=== PATIENT | female | born 1980 | race Caucasian/White ===

== ENCOUNTER → 2018-11-04 10:14 | Outpatient (CLI) | payer MEDICAID, SELFPAY ==
--- NOTE | 2018-11-04 10:18 | XR_ITS ---
XR hand LT min 3V HISTORY: Follow-up fracture ITS.REASON: evaluate for LT 4th fracture ORDERING PHYSICIAN: Terry Sevilla MD PATIENT AGE: 38 years COMPARISON: None FINDINGS: Comminuted fracture involves the mid shaft of the fourth metacarpal. There is mild displacement of the distal fracture fragment laterally x 3 mm.. The joint spaces are well-preserved. No significant degenerative/arthritic changes. No erosive changes evident.. IMPRESSION: Comminuted mildly displaced mid shaft fourth metacarpal fracture
[2018-11-04 12:34] LABS: Basophils % 0.7 % (0.1-2.0); Eosinophils # 0.1 K/mm3 (0.0-0.4); Eosinophils % 1.2 % (0.1-12.0); Hematocrit 35.7 % (37.0-47.0); Hemoglobin 10.5 g/dL (12.2-16.2); Lymphocytes # 1.8 K/mm3 (0.7-4.5); Lymphocytes % 38.8 % (10-50); Mean Corpuscular HGB Conc 29.5 g/dL (31.8-35.4); Mean Corpuscular Hemoglobin 21.9 pg (27.0-31.2); Mean Corpuscular Volume 74.5 fl (81-99); Mean Platelet Volume 8.3 fl (7.4-10.4); Monocytes # 0.3 K/mm3 (0.1-1.0); Neutrophils # 2.5 K/mm3 (1.8-7.8); Neutrophils % 53.2 % (37.0-80.0); Platelet Count 306 K/mm3 (142-424); Red Cell Distribution Width 18.6 % (11.5-17.5); White Blood Count 4.8 K/mm3 (4.8-10.8)
[2018-11-04 13:57] LABS: Alanine Aminotransferase 960 U/L (12-78); Albumin Level 3.2 gm/dL (3.4-5.0); Albumin/Globulin Ratio 0.8 (1.1-1.8); Alkaline Phosphatase 288 U/L (46-116); Anion Gap 14.2 mEq/L (5-15); Bilirubin,Total 0.9 mg/dL (0.2-1.0); Blood Urea Nitrogen 11 mg/dL (7-18); Calcium 8.9 mg/dL (8.5-10.1); Carbon Dioxide 24 mmol/L (21.0-32.0); Chloride 105 mmol/L (98-107); Creatinine,Serum 0.72 mg/dL (0.55-1.02); Estimated Glomerular Filt Rate 92 ml/min (>60); GFR (African American) 111 ML/MIN (>60); Globulin 4.2 gm/dl (1.3-3.2); Glucose 86 mg/dL (74-106); Sodium 139 mmol/L (136-145); Total Protein,Serum 7.4 gm/dL (6.4-8.2)
[2018-11-04 14:00] LABS: Aspartate Amino Transferase 738 U/L (15-37); Potassium 4.2 mmoL/L (3.5-5.1)
[2018-11-04 17:47] LABS: HCG Qualitative, Serum Negative (Negative)
[2018-11-07 18:09] LABS: Hep A Ab, IgM Positive (Negative); Hepatitis B Core Antibody IgM Negative (Negative); Hepatitis B Surface Antigen Negative (Negative)
[2018-11-08 02:51] LABS: Hepatitis C Antibody >11.0 s/co ratio (0.0-0.9)
== END ==
PROVIDERS: Nurse Practitioner Family; PCP Emergency Medicine; Visit Provider Orthopaedic Surgery
DX: Z01.818 Encounter for other preprocedural examination (principal); M79.642 Pain in left hand
CPT/HCPCS: 36415; 73130; 80053; 80074; 84703; 85025

== ENCOUNTER → 2018-11-06 13:12 | Outpatient (CLI) | payer MEDICAID, SELFPAY ==
[2018-11-06 15:56] LABS: Amylase 33 U/L (25-115); Lipase 80 u/L (73-393)
== END ==
PROVIDERS: PCP Emergency Medicine; Visit Provider Nurse Practitioner Family
DX: R89.9 Unspecified abnormal finding in specimens from other organs, systems and tissues (principal)
CPT/HCPCS: 36415; 82150; 83690

== ENCOUNTER → 2018-11-08 14:00 | Outpatient (CLI) | payer MEDICAID, SELFPAY ==
[2018-11-08 15:15] LABS: Albumin Level 3.3 gm/dL (3.4-5.0); Albumin/Globulin Ratio 0.8 (1.1-1.8); Alkaline Phosphatase 552 U/L (46-116); Anion Gap 16.1 mEq/L (5-15); Bilirubin,Total 6.1 mg/dL (0.2-1.0); Blood Urea Nitrogen 11 mg/dL (7-18); Calcium 9.1 mg/dL (8.5-10.1); Carbon Dioxide 25 mmol/L (21.0-32.0); Chloride 101 mmol/L (98-107); Creatinine,Serum 0.73 mg/dL (0.55-1.02); Estimated Glomerular Filt Rate 90 ml/min (>60); Ferritin 230 ng/mL (8-388); GFR (African American) 109 ML/MIN (>60); Globulin 4.4 gm/dl (1.3-3.2); Glucose 91 mg/dL (74-106); Potassium 4.1 mmoL/L (3.5-5.1); Sodium 138 mmol/L (136-145); T4 (Thyroxine) 12.6 ug/dl (4.7-13.3); Thyroid Stimulating Hormone 15.65 uIU/ml (0.358-3.740); Total Protein,Serum 7.7 gm/dL (6.4-8.2)
[2018-11-08 15:50] LABS: Alanine Aminotransferase 2585 U/L (12-78); Aspartate Amino Transferase 2229 U/L (15-37)
[2018-11-10 05:11] LABS: Iron 114 ug/dL (27-159); UIBC 347 ug/dL (131-425)
[2018-11-10 08:37] LABS: Iron Saturation 25 % (15-55); Vitamin B12 1740 pg/mL (232-1245); Vitamin D 25 Hydroxy 17.3 ng/mL (30.0-100.0)
== END ==
PROVIDERS: Visit Provider Nurse Practitioner Family
DX: B19.20 Unspecified viral hepatitis C without hepatic coma (principal); R11.2 Nausea with vomiting, unspecified
CPT/HCPCS: 80053; 82607; 82652; 82728; 83540; 83550; 84436; 84443

== ENCOUNTER → 2021-11-04 17:01 | Outpatient (CLI) | payer MEDICAID, SELFPAY | PROVIDERS: Visit Provider Nurse Practitioner | DX: U07.1 COVID-19 (principal) | CPT/HCPCS: C9803; U0003; U0005 ==

== ENCOUNTER 2022-02-03 16:10 | Emergency (ER) | payer MEDICAID, SELFPAY ==
[2022-02-03 17:44] VITALS: BP 129/84; PULSE 68; RESP 18; TEMP 36.7; O2SAT 100; BMI 24.5
--- NOTE | 2022-02-03 17:52 | HMH.EDUTC ---
[facility] [place] Disposition Clinical Impression: Infected puncture wound Disposition: Home, Self-Care Condition on Discharge: Good Instructions: DI for Puncture Wound, Amoxicillin and Clavulanic Acid Additional Instructions: Clean wound well with antibacterial soap and water and pat dry may apply neosporin Watch area for worsening of redness or swelling Take medication as prescribed Follow up with your Family Doctor if symptoms worsen or do not approve Return if needed Straight to ER if any life threatening symptoms Prescriptions: Amoxicillin/Potassium Clav [Amox-Clav 875-125 mg Tablet] 1 tab PO BID #20 tab Transmission Status: Pending to [facility] Referrals: Larry Quezada [Primary Care Provider] - As needed Time of Disposition: 18:03 Medical Decision Making - Kamron Inquiry Pt receiving controlled substance: No Kamron was queried for this patient: No Vital Signs: 02/03/22 17:44 Temperature 98.1 F Temperature Source Oral Pulse Rate [Left Radial] 68 Respiratory Rate 18 Blood Pressure [Left Arm] 129/84 Blood Pressure Mean [Left Arm] 99 Blood Pressure Source [Left Arm] Automatic Cuff Blood Pressure Position [Left Arm] Sitting 02 Sat by Pulse Oximetry 100 Oxygen Delivery Method Room Air Orders (Tests/Meds): ED MEDICATIONS Discontinued Medications Generic Name Dose Route Start Last Admin Trade Name Freq PRN Reason Stop Dose Admin Tetanus/Reduced Diphtheria/Acell Pertussis 0.5 ml 02/03/22 17:50 Tet/Diphth/Pert-Adult 0.5ml Syringe IM 02/03/22 17:51 .ONCE ONE [facility] [place] HPI - General Stated complaint: ao 02/02 nail wound L arn Time Seen by Provider: 02/03/22 17:53 Mode of Arrival: Ambulatory Source of Information: Patient Limitations: No Limitations Description of Symptoms (Recalled from Triage Doc. by RN): C/O puncture to rt arm HEENT Symptoms (Recalled from RN notes): No Resp Symptoms (Recalled from RN notes): No Skin Symptoms (Recalled from RN notes): Yes (Puncture to rt arm) MS Symptoms (Recalled from RN notes): No Functional Status (Recalled from RN notes): n/a - History of Present Illness Provider Complaint: Patient states that she was cleaning up and property and was pushing and old dog house when a nail that was sticking out stuck into her right forearm State that she immediately cleaned the area with peroxide but noticed over the last couple of days she noticed it was looking more red and she cannot remember when her last tetanus shot was so she came in to get checked - Related Data Home Medications Medication Instructions Recorded Confirmed cephalexin 500 mg capsule 500 mg PO QID 11/04/18 11/08/18 hydrocodone 5 mg-acetaminophen 325 1 tab PO Q6H 11/04/18 11/08/18 mg tablet sulfamethoxazole 800 1 tab PO BID tab 11/04/18 11/08/18 mg-trimethoprim 160 mg tablet Previous Rx's Medication Instructions Recorded ondansetron HCl 4 mg tablet 4 mg PO Q6H PRN #16 tab 11/08/18 cholecalciferol (vitamin D3) 125 5,000 unit PO DAILY #30 cap 11/11/18 mcg (5,000 unit) capsule ergocalciferol (vitamin D2) 1,250 50,000 unit PO QWEEK #4 cap 11/11/18 mcg (50,000 unit) capsule Amoxicillin/Potassium Clav 1 tab PO BID #20 tab 02/03/22 [Amox-Clav 875-125 mg Tablet] Allergies Allergy/AdvReac Type Severity Reaction Status Date / Time NO KNOWN ALLERGIES Allergy Uncoded 11/08/18 09:34 - Worker's Comp Is this a Worker's Comp case?: No [facility] History - Hepatitis A Screen Drug use history?: No High risk sexual behaviors?: No History of sexually transmitted infection?: No Currently employed?: No Childcare worker?: No Do you have indoor plumbing?: Yes Do you have electricity?: Yes Attestation statement:: This patient has been screened for Hepatitis A risk factors. I have reviewed the patient's past medical history: Yes Other Surgeries: Yes: Other Amputation: No Fractures: Yes Comment: Explore - Social History Smoking Status: Current every day smoker
[2022-02-03 18:15] VITALS: BP 129/84; PULSE 68; RESP 18; TEMP 36.7; O2SAT 100
== END 2022-02-03 18:16 | disposition home or self-care (01) ==
PROVIDERS: Emergency Provider Nurse Practitioner; PCP Family Medicine
DX: S51.831A Puncture wound without foreign body of right forearm, initial encounter (principal); W45.0XXA Nail entering through skin, initial encounter; Y92.017 Garden or yard in single-family (private) house as the place of occurrence of the external cause; Z23 Encounter for immunization; F17.210 Nicotine dependence, cigarettes, uncomplicated
CPT/HCPCS: 90471; 90715; 99212; G0463

== ENCOUNTER 2022-08-05 10:29 | Emergency (ER) | payer MEDICAID, SELFPAY ==
[2022-08-05 11:38] VITALS: BP 0/0; PULSE 0; RESP 0; TEMP -17.7; TEMP 0
== END 2022-08-05 11:39 | disposition left against medical advice (07) ==
PROVIDERS: Emergency Provider Nurse Practitioner; PCP Family Medicine
DX: Z53.21 Procedure and treatment not carried out due to patient leaving prior to being seen by health care provider (principal)

== ENCOUNTER 2022-08-05 19:10 | Emergency (ER) | payer MEDICAID, SELFPAY ==
--- NOTE | 2022-08-05 19:17 | XR_ITS ---
PROCEDURE INFORMATION: Exam: XR Right Ribs with PA Chest Exam date and time: 08/05/2022 7:14 PM Age: 42 years old Clinical indication: Chest wall pain; Right; Additional info: Pain in ribs from coughing TECHNIQUE: Imaging protocol: Radiologic exam of the Right ribs with PA chest. Views: 3 views COMPARISON: No relevant prior studies available. FINDINGS: Lungs: Opacity in the right middle lobe may represent pneumonia.. Pleural spaces: Unremarkable. No pleural effusion. No pneumothorax. Heart/Mediastinum: Unremarkable. No cardiomegaly. Bones/joints: Unremarkable. IMPRESSION: Opacity in the right middle lobe may represent pneumonia..
[2022-08-05 20:19] VITALS: BP 121/70; PULSE 100; RESP 20; TEMP 38.1; O2SAT 96; BMI 24.9
--- NOTE | 2022-08-05 20:24 | EXP.UTC ---
Discharge Plan Disposition Patient Disposition: Home, Self-Care Condition: Good Prescriptions Prescriptions: New azithromycin [Zithromax Z-Yaya] 250 mg tablet See Rx Instructions .ROUTE .COMPLEX 5 Days Qty: 6 0RF Rx Instructions: For 250 mg dose pack: take 500 mg today (day 1), then 250 mg for 4 days (days 2-5) prednisone [prednisone] 20 mg tablet 20 mg PO BID 5 Days Qty: 10 0RF cefdinir 300 mg capsule 300 mg PO BID Qty: 20 0RF guaifenesin [Mucinex] 600 mg tablet extended release 12hr 600 mg PO BID PRN (Reason: cough) Qty: 20 0RF albuterol sulfate [Proventil HFA] 90 mcg/actuation HFA aerosol inhaler 1 inh inhalation Q6H PRN (Reason: shortness of breath or wheezing) Qty: 8.5 0RF No Action ondansetron HCl [Zofran] 4 mg tablet 4 mg PO Q6H PRN (Reason: nausea) Qty: 16 0RF cephalexin [Keflex] 500 mg capsule 500 mg PO QID hydrocodone-acetaminophen [[place]] 5-325 mg tablet 1 tab PO Q6H sulfamethoxazole-trimethoprim [Bactrim DS] 800-160 mg tablet 1 tab PO BID ergocalciferol (vitamin D2) 50,000 unit capsule 50,000 unit PO QWEEK Qty: 4 1RF cholecalciferol (vitamin D3) 5,000 unit capsule 5,000 unit PO DAILY Qty: 30 5RF amoxicillin-pot clavulanate 1 EACH tablet 1 tab PO BID Qty: 20 0RF buprenorphine-naloxone 8-2 mg tablet, sublingual 2 tab SUBLINGUAL DAILY Label Comments: DISSOLVE 2 TABLETS UNDER THE TONGUE ONCE DAILY Referrals Follow up/Referrals: Larry Quezada [Primary Care Provider] - See instructions Activity Restrictions/Add. Instructions Additional Instructions/Restrictions: Start antibiotic today. Be sure to complete entire prescription even if feeling better Monitor temp. Tylenol every 4 hours as needed and / or ibuprofen every 6 hours as needed ( As long as your primary care physician has told you that it ok to take both. For fever/aches/pains ER if no less than 101 despite Tylenol or Motrin Humidifier/vaporizer or hot steamy shower Inhaler every 4-6 hours as needed like we discussed. If unsure how to use it, ask pharmacist to demonstrate how. Should help open airways and improve cough, wheezing, and shortness of breath *Tessalon Perles will not cause drowsiness but use at bedtime to help stop cough so that you may get some rest. *Start steroid tomorrow. Helps with inflammation therefore, cough and wheezing. Follow directions on the package. Reviewed side effects. Patient reports taking them before. Follow up IMMEDIATELY for new or worsening of symptoms OR no noticeable improvement over the next 48-72 hours. 911 immediately for any life threatening symptoms such as chest pain or difficulty breathing Clinical Impressions Clinical Impression: Pneumonia Qualifiers: Pneumonia type: due to unspecified organism Laterality: right Lung location: middle lobe of lung Qualified Code(s): J18.9 - Pneumonia, unspecified organism Stand Alone Forms Stand Alone Forms: Work/School Release Discharge ED Provider: Laurie Suresh [facility] [place] HPI General Stated complaint: cold cough, right rib cage apin Mode of Arrival: Ambulatory Source of Information: Patient Limitations: No Limitations Time Seen by Provider: 08/05/22 20:24 Description of Symptoms (Recalled from Triage Doc. by RN): pt comes in with c/o rib pain on right side, pain with breathing. pain extending into back, cough, congestion, headache. HEENT Symptoms (Recalled from RN notes): No Resp Symptoms (Recalled from RN notes): Yes Skin Symptoms (Recalled from RN notes): No MS Symptoms (Recalled from RN notes): Yes Functional Status (Recalled from RN notes): n/a History of Present Illness Provider Complaint: Patient states that she recently cared for child that had Rhino Virus States that it was about 2 weeks ago and she got sick last Thursday and has been treating it OTC States that she has been having cough and now having pain in her right ribs that with deep breath s
[2022-08-05 20:25] LABS: Adenovirus,PCR Not Detected (NotDetected); Bordetella Pertussis Not Detected (NotDetected); Chlamydophila Pneumoniae, PCR Not Detected (NotDetected); Coronavirus 19, PCR Not Detected (NotDetected); Coronavirus 229E Not Detected (NotDetected); Coronavirus NL63 Not Detected (NotDetected); Coronavirus OC43 Not Detected (NotDetected); Coronovirus HKU1,PCR Not Detected (NotDetected); Human Metapneumovirus Not Detected (NotDetected); Influenza A, PCR Not Detected (NotDetected); Influenza AH1, 2009 Not Detected (NotDetected); Influenza AH1, PCR Not Detected (NotDetected); Influenza AH3,PCR Not Detected (NotDetected); Influenza B, PCR Not Detected (NotDetected); Mycoplasma Pneumoniae, PCR Not Detected (NotDetected); Parainfluenza 1, PCR Not Detected (NotDetected); Parainfluenza 2, PCR Not Detected (NotDetected); Parainfluenza 3, PCR Not Detected (NotDetected); Parainfluenza 4, PCR Not Detected (NotDetected); Respiratory Syncytial Virus Not Detected (NotDetected)
[2022-08-05 20:39] LABS: Apearance,Urine Cloudy (Clear); Color,Urine Amber (Yellow)
[2022-08-05 20:40] LABS: UTC Pregnancy Test, Urine Negative (Negative)
[2022-08-05 20:40] LABS: Bilirubin,Urine 1+ (Negative); Blood, Urine Negative (Negative); Glucose,Urine (UA) Negative (Negative); Ketones,Urine Negative (Negative); Protein,Urine Trace (Negative); Specific Gravity, Urine 1.025 (1.005-1.030); UTC Leukocyte Esterase,Urine Trace (Negative); UTC Nitrate,Urine Negative (Negative); Urobilinogen,Urine 1 EU/dl (0.2)
[2022-08-05 21:05] VITALS: BP 121/70; PULSE 100; RESP 20; TEMP 37.2
[2022-08-06 00:01] LABS: Rhinovirus/Enterovirus Detected (NotDetected)
== END 2022-08-05 21:10 | disposition home or self-care (01) ==
PROVIDERS: Emergency Provider Nurse Practitioner; PCP Family Medicine
DX: J18.9 Pneumonia, unspecified organism (principal)
CPT/HCPCS: 71101; 81003; 81025; 87086; 87581; 87632; 87798; 96372; 99213; C9803; G0463; J0696; U0003; U0005

== ENCOUNTER 2022-10-28 12:21 | Emergency (ER) | payer MEDICAID, SELFPAY ==
[2022-10-28 12:30] VITALS: BP 136/90; PULSE 110; RESP 16; TEMP 36.6; O2SAT 98; BMI 56.7
--- NOTE | 2022-10-28 12:42 | EXP.UTC ---
Discharge Plan Disposition Patient Disposition: Home, Self-Care Condition: Good Prescriptions Prescriptions: New cefdinir 300 mg capsule 300 mg PO BID Qty: 20 0RF Referrals Follow up/Referrals: Larry Quezada [Primary Care Provider] - See instructions Activity Restrictions/Add. Instructions Additional Instructions/Restrictions: Take medication as prescribed *Monitor Temp, Over the counter Motrin or Tylenol as directed/as needed Tylenol every 4 hours and Motrin every 6 hours (as long as your family doctor has told you that you can take it) for fever or pain. and straight to ER if unable to lower temp less than 101.0 after medication given *Warm salt water gargles may help to soothe the throat *Throat Lozenges? *Warm fluids like tea with honey may help to soothe the throat? *Sleep elevated *Humidifier/Vaporizer Your throat swab was sent for culture. Those results are typically sent to your primary care. Be sure to follow up in 2-3 days with your family doctor/primary care physician if no improvement so they can review those result and treat if necessary. If you don?t have a primary care doctor, I recommend you get one but in the mean time, you will have to return to a walk in clinic Follow up IMMEDIATELY for new or worsening symptoms or no Noticeable improvement over the next 48-72 hours. 911 for difficulty breathing or swallowing Clinical Impressions Clinical Impression: Otitis media Instructions Patient Instructions: Middle Ear Infection Discharge ED Provider: Laurie Suresh [facility] [place] HPI General Stated complaint: left ear pain, runny nose,sore throat Time Seen by Provider: 10/28/22 12:42 History of Present Illness Provider Complaint: Patient states that she has been having pain in her left ear for close to a week and today she woke up with her throat hurting and having runny nose so she came in to get checked Related Data Previous Rx's Medication Instructions Recorded cefdinir 300 mg capsule 300 mg PO BID #20 caps 10/28/22 Allergies Allergy/AdvReac Type Severity Reaction Status Date / Time Penicillins Allergy Verified 10/28/22 12:53 [facility] Disclaimer: The information contained in this section may have been updated after the patient was seen, as this information can be updated by other users. Medical History (Updated 10/28/22 @ 13:05 by Laurie Suresh APRN) No significant past medical history Social History (Updated 10/28/22 @ 12:53 by Asha Suárez RN) Smoking Status: Current every day smoker tobacco type: cigarettes packs per day: 1 alcohol intake: never substance use type: denies use current occupational status: unemployed Travel in the last 8 weeks: None ROS Obtained: Yes All systems reviewed & no additional complaints except as documented and Yes Systems reviewed as appropriate & no additional complaints except as documented Constitutional Constitutional: Reports system reviewed and no additional complaints, except as documented and Reports as per HPI ENT Ears, Nose, Mouth, and Throat: Reports system reviewed and no additional complaints, except as documented, Reports as per HPI, Reports otalgia, Reports nasal congestion, Reports nasal discharge and Reports sore throat Cardiovascular Cardiovascular: Reports system reviewed and no additional complaints, except as documented and Reports as per HPI Respiratory Respiratory: Reports system reviewed and no additional complaints, except as documented and Reports as per HPI Physical Exam General General appearance: alert and in no apparent distress Expanded ENT Exam TM/Canal exam: Left TM: erythema and bulging Throat exam: Present tonsillar erythema Respiratory Respiratory exam: Present normal lung sounds bilaterally; Absent respiratory distress or wheezes Cardiovascular Cardiovascular exam: Present regular rate, normal rhythm and normal heart sounds Neurological Exam Neurological exam: Presen
[2022-10-28 13:03] LABS: UTC Strep Screen (Rapid) Negative (Negative)
[2022-10-28 13:12] VITALS: BP 136/90; PULSE 110; RESP 16; TEMP 36.6; O2SAT 98
== END 2022-10-28 13:17 | disposition home or self-care (01) ==
PROVIDERS: Emergency Provider Nurse Practitioner; PCP Family Medicine
DX: H66.90 Otitis media, unspecified, unspecified ear (principal)
CPT/HCPCS: 87880; 99212; 99213; G0463

== ENCOUNTER 2022-11-05 10:06 | Emergency (ER) | payer MEDICAID, SELFPAY ==
[2022-11-05 10:20] VITALS: BP 122/72; PULSE 72; RESP 18; TEMP 36.6; O2SAT 98; BMI 24.9
[2022-11-05 10:44] LABS: UTC Influenza A Antigen Negative (Negative); UTC Influenza B Antigen Negative (Negative)
--- NOTE | 2022-11-05 10:45 | EXP.UTC ---
Discharge Plan Disposition Patient Disposition: Home, Self-Care Condition: Good Prescriptions Prescriptions: New azithromycin [Zithromax Z-Yaya] 250 mg tablet See Rx Instructions .ROUTE .COMPLEX 5 Days Qty: 6 0RF Rx Instructions: For 250 mg dose pack: take 500 mg today (day 1), then 250 mg for 4 days (days 2-5) prednisone [prednisone] 20 mg tablet 20 mg PO BID 5 Days Qty: 10 0RF guaifenesin [Mucinex] 600 mg tablet extended release 12hr 600 - 1,200 mg PO BID PRN (Reason: cough) Qty: 20 0RF No Action cefdinir 300 mg capsule 300 mg PO BID Qty: 20 0RF Referrals Follow up/Referrals: Larry Quezada [Primary Care Provider] - See instructions Activity Restrictions/Add. Instructions Additional Instructions/Restrictions: *Monitor Temp, Over the counter Motrin or Tylenol as directed/as needed Tylenol every 4 hours and Motrin every 6 hours (as long as your family doctor has told you that you can take it) for fever or pain. and straight to ER if unable to lower temp less than 101.0 after medication given *Warm salt water gargles may help to soothe the throat *Throat Lozenges? *Warm fluids like tea with honey may help to soothe the throat? *Sleep elevated *Humidifier/Vaporizer *Flonase 2 sprays in each nostril daily but be aware that it may take 2-3 days before you notice improvement *Bromfed may cause drowsiness. Know how it effects you (your child) before driving, caring for small child, or sending your child to school. Not other antihistamines/allergy medications while taking bromfed Your throat swab was sent for culture. Those results are typically sent to your primary care. Be sure to follow up in 2-3 days with your family doctor/primary care physician if no improvement so they can review those result and treat if necessary. If you don?t have a primary care doctor, I recommend you get one but in the mean time, you will have to return to a walk in clinic Follow up IMMEDIATELY for new or worsening symptoms or no Noticeable improvement over the next 48-72 hours. 911 for difficulty breathing or swallowing You were tested for today for Upper Respiratory Panel with COVID19 your test result should be back in the next 24-48 hours, you may check your results on the [facility] [employer] [facility] Clinical Impressions Clinical Impression: Bronchitis Stand Alone Forms Stand Alone Forms: Work/School Release Instructions Patient Instructions: Azithromycin, Acute Bronchitis Discharge ED Provider: Laurie Suresh [facility] [place] HPI General Stated complaint: coughing, congestion Mode of Arrival: Ambulatory Source of Information: Patient Limitations: No Limitations Time Seen by Provider: 11/05/22 10:53 Description of Symptoms (Recalled from Triage Doc. by RN): PATIENT C/O COUGH, MUCOUS, RUNNY NOSE, BODY ACHES, AND HEADACHE X 3 DAYS HEENT Symptoms (Recalled from RN notes): Yes Resp Symptoms (Recalled from RN notes): Yes Skin Symptoms (Recalled from RN notes): No MS Symptoms (Recalled from RN notes): No Functional Status (Recalled from RN notes): WNL History of Present Illness Provider Complaint: Patient states that she has been having cough, coughing up mucous, body aches, chills and sinus pressure States that she is taking Cefdinir and only has a couple days of it left but still not feeling any better States that her ear feels better but now feels like it is moving to her chest and worried it will become Pneumonia Related Data Previous Rx's Medication Instructions Recorded cefdinir 300 mg capsule 300 mg PO BID #20 caps 10/28/22 azithromycin 250 mg tablet See Rx Instructions PO .COMPLEX 5 11/05/22 (Zithromax Z-Yaya) days #6 tabs guaifenesin 600 mg tablet, 600 - 1,200 mg PO BID PRN cough 11/05/22 extended release 12 hr (Mucinex) #20 tabs prednisone 20 mg tablet 20 mg PO BID 5 days #10 tabs 11/05/22 Allergies Allergy/AdvReac Type Severity Reaction Status Date / Time Penicillins Allergy Verified 10/28
[2022-11-05 10:52] VITALS: BP 122/72; PULSE 72; RESP 18; TEMP 36.6; O2SAT 98
== END 2022-11-05 11:05 | disposition home or self-care (01) ==
PROVIDERS: Emergency Provider Nurse Practitioner; PCP Family Medicine
DX: J40 Bronchitis, not specified as acute or chronic (principal)
CPT/HCPCS: 87804; 99212; 99213; C9803; G0463; U0003; U0005

== ENCOUNTER 2023-01-05 09:22 | Emergency (ER) | payer MEDICAID, SELFPAY ==
[2023-01-05 09:23] VITALS: BP 114/73; PULSE 62; RESP 18; TEMP 36.6; O2SAT 100; BMI 24.3
--- NOTE | 2023-01-05 09:58 | US_ITS ---
FINAL REPORT TECHNIQUE: Sonographic images of the right upper quadrant were obtained. CLINICAL HISTORY: RUQ pain FINDINGS: PANCREAS: Unremarkable. LIVER: Homogeneous. No focal hepatic lesion. No intrahepatic biliary ductal dilatation. GALLBLADDER: No gallstones. No gallbladder wall thickening or pericholecystic fluid. COMMON DUCT: 4 mm. Normal for age. RIGHT KIDNEY: The right kidney measures 10.7 cm. There is no hydronephrosis, mass, or stone. FREE FLUID: None. IMPRESSION: Unremarkable ultrasound of the right upper quadrant. Reviewed, Interpreted and Dictated by Tamra Martins MD Transcribed by Mansi Wild Authenticated and . [facility]
[2023-01-05 10:02] VITALS: BMI 24.3
--- NOTE | 2023-01-05 10:10 | PC.NURSE ---
notified rad of u/s order
--- NOTE | 2023-01-05 10:23 | HMH.EDGENADL ---
Discharge Plan Disposition Patient Disposition: Home, Self-Care Prescriptions Prescriptions: New omeprazole magnesium [Acid Coastal Tug Mate (omeprazole)] 20 mg capsule,delayed release(DR/EC) 20 mg PO DAILY 28 Days Qty: 28 0RF ondansetron 4 mg tablet,disintegrating 4 mg PO Q8H PRN (Reason: Nausea) Qty: 15 0RF No Action buprenorphine-naloxone 8-2 mg tablet, sublingual 2 tab SUBLINGUAL DAILY Referrals Follow up/Referrals: Larry Quezada [Primary Care Provider] - See instructions Activity Restrictions/Add. Instructions Additional Instructions/Restrictions: Follow-up on the results of the hepatitis panel with your primary care physician. Take medicine as prescribed return for worsening abdominal pain or any other concerns within the next 8 hours Clinical Impressions Clinical Impression: Abdominal pain Instructions Patient Instructions: DI for Acute Abdominal Pain Discharge ED Provider: Celso Chow General Adult HPI General Chief complaint: Abdominal Pain Stated complaint: Dry mouth, upper abd pain Time Seen by Provider: 01/05/23 09:35 Mode of Arrival: Ambulatory Source of Information: Patient Limitations: No Limitations Description of Symptoms (Recalled from ER Triage Doc. by RN): Pt reports began having abd pain thursday, onset of vomiting, states no pain on thursday or thursday. Pt reports pain began again this morning, describes pain as sharp in nature and reports pain comes in waves , reports nausea. History of Present Illness HPI narrative: 42-year-old female presents with sudden onset epigastric pain Thursday. She had spasm of pain in her epigastric region that resolved. Then it came on again this morning while she was at work. She describes it as a spasm. Sharp nonradiating associated with vomiting nonbloody. 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 Medical History (Updated 01/05/23 @ 12:49 by Celso Chow MD) No significant past medical history Social History (Updated 11/05/22 @ 10:38 by Asha Suárez RN) Smoking Status: Current every day smoker tobacco type: cigarettes packs per day: 1 alcohol intake: never substance use type: denies use current occupational status: unemployed Travel in the last 8 weeks: None ROS Obtained: Yes All systems reviewed & no additional complaints except as documented Constitutional Constitutional: Denies fatigue Eyes Eyes: Denies dry eyes ENT Ears, Nose, Mouth, and Throat: Denies dizziness Cardiovascular Cardiovascular: Denies diaphoresis and Denies dyspnea Respiratory Respiratory: Denies dyspnea Gastrointestinal Gastrointestingal: Reports nausea; Denies melena Genitourinary Female Genitourinary: Denies hematuria Musculoskeletal Musculoskeletal: Denies joint swelling Integumentary/Breasts Skin/Breast: Denies rash Neurologic Neurologic: Denies dizziness Endocrine Endocrine: Denies fatigue Physical Exam General General appearance: alert and in no apparent distress Eye Eye exam: Present PERRL and EOMI ENT ENT exam: Present normal exam and normal oropharynx Neck Neck exam: Present normal inspection Chest Chest inspection: Present symmetric chest wall rise Respiratory Respiratory exam: Present normal lung sounds bilaterally; Absent respirator
--- NOTE | 2023-01-05 10:35 | PC.NURSE ---
spoke with u/s staff states will be down to get pt for scan in approx 10 minutes
[2023-01-05 10:42] LABS: Basophils # 0.1 K/mm3 (0-0.2); Basophils % 1.5 % (0.1-2.0); Eosinophils # 0.2 K/mm3 (0.0-0.4); Eosinophils % 3.3 % (0.1-12.0); Hematocrit 36.2 % (37.0-47.0); Hemoglobin 11.6 g/dL (12.2-16.2); Lymphocytes # 1.4 K/mm3 (0.7-4.5); Mean Corpuscular HGB Conc 32.1 g/dL (31.8-35.4); Mean Corpuscular Hemoglobin 26.5 pg (27.0-31.2); Mean Corpuscular Volume 82.4 fl (81-99); Mean Platelet Volume 9.4 fl (7.4-10.4); Monocytes # 0.2 K/mm3 (0.1-1.0); Monocytes % 5.4 % (1.7-9.3); Neutrophils # 2.6 K/mm3 (1.8-7.8); Neutrophils % 58.8 % (37.0-80.0); Platelet Count 160 K/mm3 (142-424); Red Blood Count 4.39 M/mm3 (4.20-5.40); Red Cell Distribution Width 17.8 % (11.5-17.5); White Blood Count 4.4 K/mm3 (4.8-10.8)
--- NOTE | 2023-01-05 10:44 | PC.NURSE ---
pt to radiology
--- NOTE | 2023-01-05 10:46 | PC.NURSE ---
pt to u/s via wheelchair
[2023-01-05 10:51] LABS: Alanine Aminotransferase 139 U/L (12-78); Albumin Level 4.2 g/dl (3.5-5.0); Albumin/Globulin Ratio 1.1 (1.1-1.8); Alkaline Phosphatase 130 U/L (38-126); Anion Gap 8.1 mEq/L (5-15); Aspartate Amino Transferase 135 U/L (14-36); Bilirubin,Total 0.5 mg/dl (0.2-1.3); Blood Urea Nitrogen 10 mg/dl (7-17); Calcium 8.5 mg/dl (8.4-10.2); Carbon Dioxide 28 mmol/L (22.0-30.0); Chloride 104 mmol/L (98-107); Creatinine Clearance Estimated 109 mL/min (50-200); Estimated Glomerular Filt Rate 93 ml/min (>60); GFR (African American) 112 ML/MIN (>60); Globulin 3.7 g/dL (1.3-3.2); Glucose 90 mg/dl (74-100); Lipase 93 U/L (23-300); Potassium 4.1 mmoL/L (3.5-5.1); Sodium 136 mmol/L (136-145); Total Protein,Serum 7.9 g/dl (6.3-8.2)
[2023-01-05 11:03] LABS: HCG Qualitative, Serum Negative (Negative)
--- NOTE | 2023-01-05 11:06 | PC.NURSE ---
pt return from u/s via wheelchair
--- NOTE | 2023-01-05 12:13 | PC.NURSE ---
waiting director radiation oncology back from radiology r/t u/s results
[2023-01-05 12:15] VITALS: BP 108/72; O2SAT 97
--- NOTE | 2023-01-05 12:16 | PC.NURSE ---
checked on pt at this time, notified pt we are waiting on u/s results. Pt states no needs at this time. call light in reach
[2023-01-05 12:30] VITALS: BP 114/73; PULSE 56; O2SAT 99
[2023-01-05 13:18] VITALS: BP 122/77; PULSE 66; RESP 16; TEMP 36.7; O2SAT 100
[2023-01-13 05:15] LABS: Hep A Ab, IgM NEGATIVE
[2023-01-13 05:16] LABS: Hepatitis B Core Antibody IgM POSITIVE; Hepatitis B Surface Antigen POSITIVE; Hepatitis C Antibody REACTIVE
== END 2023-01-05 13:20 | disposition home or self-care (01) ==
PROVIDERS: Emergency Provider Emergency Medicine; PCP Family Medicine
DX: R10.13 Epigastric pain (principal)
CPT/HCPCS: 76705; 80053; 80074; 83690; 84703; 85025; 96360; 99284; 99285

== ENCOUNTER 2023-04-30 11:52 | Emergency (ER) | payer MEDICAID, SELFPAY ==
[2023-04-30 11:52] VITALS: BP 109/72; PULSE 64; RESP 18; TEMP 37.2; O2SAT 100; BMI 24.3
--- NOTE | 2023-04-30 12:12 | EXP.UTC ---
Discharge Plan Disposition Patient Disposition: Home, Self-Care Condition: Good Prescriptions Prescriptions: New azithromycin [Zithromax] 250 mg tablet 250 mg PO UD DOSE PK Qty: 6 0RF Rx Instructions: Take two (2) tablets today, then one (1) tablet days #2 thru #5 benzonatate [benzonatate] 100 mg capsule 100 mg PO TIDP PRN (Reason: Cough) Qty: 30 0RF methylprednisolone 4 mg Tablets,Dose Pack 4 mg PO DIRECTED Qty: 21 0RF No Action buprenorphine-naloxone 8-2 mg tablet, sublingual 2 tab SUBLINGUAL DAILY omeprazole magnesium [Acid Server Systems Administrator (omeprazole)] 20 mg capsule,delayed release(DR/EC) 20 mg PO DAILY 28 Days Qty: 28 0RF ondansetron 4 mg tablet,disintegrating 4 mg PO Q8H PRN (Reason: Nausea) Qty: 15 0RF Referrals Follow up/Referrals: Larry Quezada [Primary Care Provider] - See instructions Activity Restrictions/Add. Instructions Additional Instructions/Restrictions: Drink plenty of fluids. Take tylenol or ibuprofen for pain or fever. Take the medications as directed. Follow up with your regular doctor. GO TO THE ER FOR ANY WORSENING SYMPTOMS Don't start the oral steroids until tomorrow, since you had the shot here today. Clinical Impressions Clinical Impression: Bronchitis Stand Alone Forms Stand Alone Forms: Work/School Release Instructions Patient Instructions: Acute Bronchitis, DI for Acute Bronchitis Discharge ED Provider: Blayne Whitten [facility] General Stated complaint: Fatigue, chills, headache, congestion, cough Mode of Arrival: Ambulatory Source of Information: Patient Limitations: No Limitations Time Seen by Provider: 04/30/23 12:12 Description of Symptoms (Recalled from Triage Doc. by RN): Patient reports feeling horrible. Complaint of headache, congested, tired and being stopped up HEENT Symptoms (Recalled from RN notes): Yes Resp Symptoms (Recalled from RN notes): No Skin Symptoms (Recalled from RN notes): No MS Symptoms (Recalled from RN notes): No Functional Status (Recalled from RN notes): wnl History of Present Illness Provider Complaint: she states that for the past 4 days she has had worsening chest congestion, cough, sinus congestion and sore throat. 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 Previous Rx's Medication Instructions Recorded omeprazole magnesium 20 mg 20 mg PO DAILY 4 weeks #28 caps 01/05/23 capsule,delayed release (Acid Server Systems Administrator (omeprazole)) ondansetron 4 mg disintegrating 4 mg PO Q8H PRN Nausea #15 tabs 01/05/23 tablet azithromycin 250 mg tablet 250 mg PO UD DOSE PK #6 tabs 04/30/23 (Zithromax) benzonatate 100 mg capsule 100 mg PO TIDP PRN Cough #30 caps 04/30/23 methylprednisolone 4 mg tablets in 4 mg PO DIRECTED #21 tabs 04/30/23 a dose pack Allergies Allergy/AdvReac Type Severity Reaction Status Date / Time Penicillins Allergy Verified 10/28/22 12:53 Worker's Comp Is this a Worker's Comp case?: No [facility] Disclaimer: The information contained in this section may have been updated after the patient was seen, as this information can be updated by other users. Medical History No significant past medical history Social History Smoking Status: Current every day smoker tobacco type: cigarettes packs per day: 1 alcohol intake: never substance use type: denies use current occupational status: unemployed Travel in the last 8 weeks: None ROS Obtained: Yes All systems reviewed & no additional complaints except as documented Constitutional Constitutional: Reports chills and Reports fever(s) Eyes Eyes: Denies eye discharge ENT Ears, Nose, Mouth, and Throat: Reports as per HPI Cardiovascular Cardiovascular: Denies c
[2023-04-30 13:30] VITALS: BP 109/72; PULSE 64; RESP 18; TEMP 37.2; O2SAT 100
== END 2023-04-30 13:30 | disposition home or self-care (01) ==
PROVIDERS: Emergency Provider Nurse Practitioner Family; PCP Family Medicine
DX: J20.9 Acute bronchitis, unspecified (principal); J02.9 Acute pharyngitis, unspecified; F17.210 Nicotine dependence, cigarettes, uncomplicated
CPT/HCPCS: 96372; 99212; 99214; G0463

== ENCOUNTER 2023-07-14 13:39 | Emergency (ER) | payer MEDICAID, SELFPAY ==
[2023-07-14 14:00] VITALS: BP 127/74; PULSE 95; RESP 18; TEMP 36.8; O2SAT 95; BMI 24.0
--- NOTE | 2023-07-14 14:12 | EXP.UTC ---
Discharge Plan Disposition Patient Disposition: Home, Self-Care Condition: Good Prescriptions Prescriptions: New levofloxacin [levofloxacin] 500 mg tablet 500 mg PO DAILY Qty: 7 0RF methylprednisolone 4 mg Tablets,Dose Pack 4 mg PO DIRECTED Qty: 21 0RF promethazine-DM 6.25-15 mg/5 mL Syrup 5 ml PO Q6H PRN (Reason: Cough) Qty: 240 0RF guaifenesin [Mucinex] 600 mg tablet extended release 12hr 600 - 1,200 mg PO BIDP PRN (Reason: Congestion) Qty: 30 0RF No Action buprenorphine-naloxone 8-2 mg tablet, sublingual 2 tab SUBLINGUAL DAILY Referrals Follow up/Referrals: Larry Quezada [Primary Care Provider] - See instructions Activity Restrictions/Add. Instructions Additional Instructions/Restrictions: Drink plenty of fluids. Take tylenol or ibuprofen for pain or fever. Take the medications as directed. Follow up with your regular doctor. GO TO THE ER FOR ANY WORSENING SYMPTOMS The cough medication (promethazine dm) will make you drowsy, so don't drive or operate heavy machinery after taking it. Clinical Impressions Clinical Impression: Pneumonia Instructions Patient Instructions: Pneumonia-Adult, Ceftriaxone Injection, Dexamethasone Injection Discharge ED Provider: Blayne Whitten [facility] [place] HPI General Stated complaint: cough, Rt side rib pain, chills, body aches, [place] Time Seen by Provider: 07/14/23 14:12 History of Present Illness Provider Complaint: She states that for the past 4 days she has had worsening chest congestion, right rib pain, fever, and chills. 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 07/14/23 sublingual tablet addiction Previous Rx's Medication Instructions Recorded guaifenesin 600 mg tablet, 600 - 1,200 mg PO BIDP PRN 07/14/23 extended release 12 hr (Mucinex) Congestion #30 tabs levofloxacin 500 mg tablet 500 mg PO DAILY #7 tabs 07/14/23 methylprednisolone 4 mg tablets in 4 mg PO DIRECTED #21 tabs 07/14/23 a dose pack promethazine-DM 6.25 mg-15 mg/5 mL 5 ml PO Q6H PRN Cough #240 mL 07/14/23 oral syrup Allergies Allergy/AdvReac Type Severity Reaction Status Date / Time Penicillins Allergy Verified 07/14/23 14:48 [facility] Disclaimer: The information contained in this section may have been updated after the patient was seen, as this information can be updated by other users. Medical History No significant past medical history Social History Smoking Status: Current every day smoker tobacco type: cigarettes packs per day: 1 alcohol intake: never substance use type: denies use current occupational status: unemployed Travel in the last 8 weeks: None ROS Obtained: Yes All systems reviewed & no additional complaints except as documented Constitutional Constitutional: Reports chills and Reports fever(s) Eyes Eyes: Denies eye discharge ENT Ears, Nose, Mouth, and Throat: Reports as per HPI Cardiovascular Cardiovascular: Denies chest pain Respiratory Respiratory: Denies shortness of breath, Reports chest congestion, Reports cough, Denies stridor and Denies wheezing Gastrointestinal Gastrointestingal: Reports nausea; Denies abdominal pain, constipation, cramping, diarrhea or vomiting Musculoskeletal Musculoskeletal: Denies arthralgias Integumentary/Breasts Skin/Breast: Denies rash Neurologic Neurologic: Denies paresthesias Allergic/Immunologic Allergic/Immunologic: Denies wheezing Physical Exam General General appearance: alert and in no apparent distress Head Head exam: atraumatic, normocephalic and normal inspection Eye Eye exam: Present normal appearance, PERRL and EOMI ENT ENT exam: Present normal exam, normal oropharynx, mucous membranes moist, TM's normal bilaterally and normal external ear exam N
--- NOTE | 2023-07-14 14:14 | XR_ITS ---
FINAL REPORT CLINICAL HISTORY: sob COMPARISON: 08/05/2022 FINDINGS: TWO-VIEW CHEST The heart size is normal. The mediastinum is normal. There are bibasilar opacities, may represent atelectasis versus pneumonia. There is no pneumothorax. IMPRESSION: Bibasilar atelectasis versus pneumonia. Reviewed, Interpreted and Dictated by Khadar Us III, MD Transcribed by Jazmín Benites Authenticated and . [facility]
--- NOTE | 2023-07-14 14:17 | XR_ITS ---
FINAL REPORT CLINICAL HISTORY: pain FINDINGS: RIBS BILATERAL W/CHEST MIN 4 VIEWS The heart size is normal. The mediastinum is normal. The lungs are clear. There is no pneumothorax. No acute displaced fracture is identified. IMPRESSION: No acute cardiopulmonary process. Reviewed, Interpreted and Dictated by Khadar Us III, MD Transcribed by Jazmín Benites Authenticated and [facility]
--- NOTE | 2023-07-14 14:59 | PC.NURSE ---
Pt is allergic to PCN, but stated has had ceftriaxone before and did fine with it.
--- NOTE | 2023-07-14 15:07 | PC.NURSE ---
Pt states that she is not allergic to PCN
[2023-07-14 15:20] VITALS: BP 127/74; PULSE 95; RESP 18; TEMP 36.8; O2SAT 94
== END 2023-07-14 15:20 | disposition home or self-care (01) ==
PROVIDERS: Emergency Provider Nurse Practitioner Family; PCP Family Medicine
DX: J18.9 Pneumonia, unspecified organism (principal); F17.210 Nicotine dependence, cigarettes, uncomplicated
CPT/HCPCS: 71046; 71111; 87635; 96372; 99212; 99214; G0463; J0696

== ENCOUNTER 2023-09-24 15:31 | Emergency (ER) | payer MEDICAID, SELFPAY ==
[2023-09-24 15:40] VITALS: BP 136/85; PULSE 84; RESP 21; TEMP 37; O2SAT 97; BMI 24.9
--- NOTE | 2023-09-24 16:02 | EXP.UTC ---
Discharge Plan Disposition Patient Disposition: Home, Self-Care Condition: Good Prescriptions Prescriptions: New benzonatate 100 mg capsule 100 mg PO TID PRN (Reason: cough) Qty: 15 0RF methylprednisolone [Medrol (Yaya)] 4 mg tablets,dose pack See Rx Instructions .Route .COMPLEX 6 Days Qty: 21 0RF Rx Instructions: taper pack; guaifenesin [Mucinex] 600 mg tablet extended release 12hr 1,200 mg PO BID PRN (Reason: cough) Qty: 20 0RF azithromycin [Zithromax Z-Yaya] 250 mg tablet See Rx Instructions .ROUTE .COMPLEX 5 Days Qty: 6 0RF Rx Instructions: For 250 mg dose pack: take 500 mg today (day 1), then 250 mg for 4 days (days 2-5) No Action buprenorphine-naloxone 8-2 mg tablet, sublingual 2 tab SUBLINGUAL DAILY Referrals Follow up/Referrals: Larry Quezada [Primary Care Provider] - See instructions Activity Restrictions/Add. Instructions Additional Instructions/Restrictions: Start antibiotic today. Be sure to complete entire prescription even if feeling better Monitor temp. Tylenol every 4 hours as needed and / or ibuprofen every 6 hours as needed ( As long as your primary care physician has told you that it ok to take both. For fever/aches/pains ER if no less than 101 despite Tylenol or Motrin Humidifier/vaporizer or hot steamy shower Mucinex during the day for your cough and cough suppressant only at night. Be sure to drink lots of water. Insurance may not cover a prescriptions for mucinex. Might be cheaper to get 400mg tablets and take 2 tablet in the morning, mid-day and evening with lots of water. *Tessalon Perles will not cause drowsiness but use at bedtime to help stop cough so that you may get some rest. *Start steroid tomorrow. Helps with inflammation therefore, cough and wheezing. Follow directions on the package. Reviewed side effects. Patient reports taking them before. Follow up IMMEDIATELY for new or worsening of symptoms OR no noticeable improvement over the next 48-72 hours. 911 immediately for any life threatening symptoms such as chest pain or difficulty breathing Clinical Impressions Clinical Impression: Bronchitis Sinusitis Qualifiers: Sinusitis location: unspecified location Chronicity: unspecified Qualified Code(s): J32.9 - Chronic sinusitis, unspecified Stand Alone Forms Stand Alone Forms: Work/School Release Instructions Patient Instructions: DI for Sinusitis, Acute Bronchitis Discharge ED Provider: Laurie Suresh [facility] [place] HPI General Stated complaint: cough, body aches Mode of Arrival: Ambulatory Source of Information: Patient Limitations: No Limitations Time Seen by Provider: 09/24/23 16:02 Description of Symptoms (Recalled from Triage Doc. by RN): PATIENT C/O PRODUCTIVE COUGH, BODY ACHES, AND FATIGUE SINCE THURSDAY. RECENTLY EXPOSED TO RSV HEENT Symptoms (Recalled from RN notes): No Resp Symptoms (Recalled from RN notes): Yes Skin Symptoms (Recalled from RN notes): No MS Symptoms (Recalled from RN notes): No Functional Status (Recalled from RN notes): WNL History of Present Illness Provider Complaint: Patient states that she was recently around child that had RSV States that she has been having productive cough at times, sinus congestion and pressure, body aches, fatigue and over all not feeling well States that it has been going on about a week and she wanted to come in and get tested and get some antibiotics before she sets up Pneumonia again 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
[2023-09-24 16:45] VITALS: BP 136/85; PULSE 84; RESP 21; TEMP 37; O2SAT 97
== END 2023-09-24 16:58 | disposition home or self-care (01) ==
PROVIDERS: Emergency Provider Nurse Practitioner; PCP Family Medicine
DX: J20.9 Acute bronchitis, unspecified (principal); J01.90 Acute sinusitis, unspecified; R51.9 Headache, unspecified; R05.8 Other specified cough; R09.81 Nasal congestion; R53.83 Other fatigue; M79.18 Myalgia, other site; R09.89 Other specified symptoms and signs involving the circulatory and respiratory systems; F17.210 Nicotine dependence, cigarettes, uncomplicated; Z20.828 Contact with and (suspected) exposure to other viral communicable diseases
CPT/HCPCS: 96372; 99212; 99214; G0463; J0696

== ENCOUNTER 2024-01-01 15:29 | Emergency (ER) | payer MEDICAID, SELFPAY ==
[2024-01-01 15:45] VITALS: BP 143/83; PULSE 83; RESP 98; TEMP 36.9; O2SAT 98; BMI 25.9
--- NOTE | 2024-01-01 15:47 | EXP.UTC ---
Discharge Plan Disposition Patient Disposition: Home, Self-Care Condition: Good Prescriptions Prescriptions: New azithromycin [Zithromax] 250 mg tablet 250 mg PO UD DOSE PK Qty: 6 0RF Rx Instructions: Take two (2) tablets today, then one (1) tablet days #2 thru #5 benzonatate 100 mg capsule 100 mg PO TIDP PRN (Reason: Cough) Qty: 30 0RF methylprednisolone 4 mg Tablets,Dose Pack 4 mg PO DIRECTED 6 Days Qty: 21 0RF Rx Instructions: Take 1 pack as directed for 6 days guaifenesin [Mucinex] 600 mg tablet extended release 12hr 600 - 1,200 mg PO BIDP PRN (Reason: Congestion) Qty: 30 0RF No Action buprenorphine-naloxone 8-2 mg tablet, sublingual 2 tab SUBLINGUAL DAILY Referrals Follow up/Referrals: Larry Quezada [Primary Care Provider] - See instructions Activity Restrictions/Add. Instructions Additional Instructions/Restrictions: Drink plenty of fluids. Take tylenol or ibuprofen for pain or fever. Take the medications as directed. Follow up with your regular doctor. GO TO THE ER FOR ANY WORSENING SYMPTOMS Don't start the oral steroids until tomorrow since you had the steroid shot here today. Clinical Impressions Clinical Impression: Bronchitis, Acute viral syndrome Sinusitis Qualifiers: Sinusitis location: unspecified location Chronicity: unspecified Qualified Code(s): J32.9 - Chronic sinusitis, unspecified Instructions Patient Instructions: Sinusitis, DI for Sinusitis Discharge ED Provider: Blayne Whitten [facility] General Stated complaint: head,chest congestion,pain in ribs,fever Time Seen by Provider: 01/01/24 15:47 History of Present Illness Provider Complaint: She states that for the past 4 days she has had worsening sinus congestion, chest congestion, pleuritic chest and low grade fever. 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 01/01/24 sublingual tablet addiction Previous Rx's Medication Instructions Recorded azithromycin 250 mg tablet 250 mg PO UD DOSE PK #6 tabs 01/01/24 (Zithromax) benzonatate 100 mg capsule 100 mg PO TIDP PRN Cough #30 caps 01/01/24 guaifenesin 600 mg tablet, 600 - 1,200 mg (1 - 2 x 600 mg) PO 01/01/24 extended release 12 hr (Mucinex) BIDP PRN Congestion #30 tabs methylprednisolone 4 mg tablets in 4 mg PO DIRECTED 6 days #21 tabs 01/01/24 a dose pack Allergies Allergy/AdvReac Type Severity Reaction Status Date / Time No Known Allergies Allergy Verified 01/01/24 15:57 [facility] Disclaimer: The information contained in this section may have been updated after the patient was seen, as this information can be updated by other users. Medical History No significant past medical history Social History Smoking Status: Current every day smoker tobacco type: cigarettes packs per day: 1 alcohol intake: never substance use type: denies use current occupational status: unemployed Travel in the last 8 weeks: None ROS Obtained: Yes All systems reviewed & no additional complaints except as documented Constitutional Constitutional: Reports poor appetite Eyes Eyes: Reports system reviewed and no additional complaints, except as documented ENT Ears, Nose, Mouth, and Throat: Reports as per HPI Cardiovascular Cardiovascular: Reports system reviewed and no additional complaints, except as documented and Denies chest pain Respiratory Respiratory: Denies shortness of breath, Denies chest congestion, Reports cough, Denies stridor and Denies wheezing Gastrointestinal Gastrointestingal: Reports system reviewed and no additional complaints, except as documented; Denies abdominal pain, diarrhea or vomiting Musculoskeletal Musculoskeletal: Reports system reviewed and no additional complaints, except as documented and Denies arthralgias Integumentary/Breasts Skin/Breast: Reports system reviewed and no additional complaints, except as documented and Denies rash Neurologic Neurologic: Denies paresthesias Allergic/Immunologic Allergic/Immunologic: Denies wheezing Physical Exam General General appearance: alert and in no apparent distress Head Head exam: atraumatic, normocephalic and normal inspection Eye Eye exam: Present normal appearance, PERRL and EOMI ENT ENT exam: Present mucous membranes moist and normal external ear exam Expanded ENT Exam TM/Canal exam: Bilateral TM: erythema and bulging Nose exam: Absent sinus tenderness Mouth exam: Present normal external inspection; Absent drooling Teeth exam: Present normal inspection Throat exam: Present tonsillar erythema, tonsillomegaly and tonsillar exudate Neck Neck exam: Present normal inspection, full ROM and trachea midline; Absent tenderness, meningismus or lymphadenopathy Chest Chest inspection: Present normal inspection and symmetric chest wall rise; Absent tenderness Respiratory Respiratory exam: Present normal lung sounds bilaterally; Absent respiratory distress, wheezes, stridor or accessory muscle use Cardiovascular Cardiovascular exam: Present regular rate and normal rhythm; Absent systolic murmur or diastolic murmur Abdominal Exam Abdominal exam: Present soft and normal bowel sounds; Absent distention, tenderness, guarding, rebound or rigidity Extremities Exam Extremities exam: Present normal inspection and normal capillary refill; Absent calf tenderness Back Exam Back exam: Present normal inspection and full ROM; Absent tenderness, CVA tenderness (R) or CVA tenderness (L) Neurological Exam Neurological exam: Present alert, oriented X3 and CN II-XII intact Psychiatric Psychiatric exam: Present normal affect and normal mood Skin Skin exam: Present warm, dry, intact and normal color Medical Decision Making Medical Records Medical records reviewed: No I reviewed the patient's medical records. [place] Inquiry Pt receiving controlled substance: No Lab Data Lab results reviewed: Yes I reviewed the patient's lab results.
[2024-01-01] MEDS: DEXAMETHASONE 4MG/ML 1ML VIAL 8 MG IM (16:09)
[2024-01-01] MEDS: LIDOCAINE 1% 5ML PF VIAL IM (16:10)
[2024-01-01] MEDS: cefTRIAXone 1GM VIAL 1 GM IM (16:10)
[2024-01-01 16:16] LABS: UTC Influenza A Antigen Negative (Negative); UTC Influenza B Antigen Negative (Negative)
[2024-01-01 16:37] VITALS: BP 143/83; PULSE 83; RESP 18; TEMP 36.9; O2SAT 98
--- NOTE | 2024-01-01 16:38 | PC.NURSE ---
Sent rapid covid/flu to lab via tube.
[2024-01-01 16:48] LABS: Coronavirus 19, PCR Not Detected (NotDetected); Influenza A, PCR Not Detected (NotDetected); Influenza B, PCR Not Detected (NotDetected)
== END 2024-01-01 16:37 | disposition home or self-care (01) ==
PROVIDERS: Emergency Provider Nurse Practitioner Family; PCP Family Medicine
DX: J20.9 Acute bronchitis, unspecified (principal); R50.9 Fever, unspecified; R07.81 Pleurodynia; R09.81 Nasal congestion; B34.9 Viral infection, unspecified; F17.210 Nicotine dependence, cigarettes, uncomplicated; Z56.0 Unemployment, unspecified
CPT/HCPCS: 87636; 87804; 96372; 99212; 99214; G0463; J0696

== ENCOUNTER 2024-01-21 10:30 | Outpatient (CLI) | payer MEDICAID, SELFPAY ==
--- NOTE | 2024-01-21 10:34 | US_ITS ---
FINAL REPORT CLINICAL HISTORY: TYPE B VIRAL HEPATITIS FINDINGS: Sonographic images of the right upper quadrant were obtained. The pancreas is partially obscured.The liver has an unremarkable appearance.The gallbladder appears normal without evidence of gallstones.There is no evidence of biliary ductal dilatation.The common duct measures 6mm, borderline dilated. Limited images of the right kidney are unremarkable. IMPRESSION: Borderline dilated common bile duct. Reviewed, Interpreted and Dictated by Khadar Us III, MD Transcribed by Yola Conroy Authenticated and [facility]
== END 2024-01-21 23:59 | disposition home or self-care (01) ==
LOC: RAD 10:31
PROVIDERS: PCP Family Medicine; Visit Provider Physician Assistant
DX: B19.10 Unspecified viral hepatitis B without hepatic coma (principal)
CPT/HCPCS: 76705

== ENCOUNTER 2024-09-16 13:04 | Emergency (ER) | payer MEDICAID, SELFPAY ==
[2024-09-16 13:38] VITALS: BP 117/46; PULSE 69; RESP 18; TEMP 37; O2SAT 97; BMI 20.5
[2024-09-16 13:52] LABS: UTC Influenza A Antigen Negative (Negative); UTC Influenza B Antigen Negative (Negative)
--- NOTE | 2024-09-16 13:54 | ED_ITS ---
Discharge Plan Disposition Patient Disposition: Home, Self-Care Condition: Good Prescriptions Prescriptions: New azithromycin [Zithromax] 250 mg tablet 250 mg PO UD DOSE PK Qty: 6 0RF Rx Instructions: Take two (2) tablets today, then one (1) tablet days #2 thru #5 benzonatate 100 mg capsule 100 mg PO TIDP PRN (Reason: Cough) Qty: 30 0RF methylprednisolone 4 mg Tablets,Dose Pack 4 mg PO DIRECTED 6 Days Qty: 21 0RF Rx Instructions: Take 1 pack as directed for 6 days acyclovir 400 mg tablet 400 mg PO TID 7 Days Qty: 21 1RF acyclovir 5 % ointment 1 applic topical 5XDAY 4 Days Qty: 5 1RF No Action buprenorphine-naloxone 8-2 mg tablet, sublingual 2 tab SUBLINGUAL DAILY levothyroxine 100 mcg tablet 100 mcg PO DAILY Patient Comments: TAKE 1 TABLET BY MOUTH DAILY Vemlidy 25 mg tablet 25 mg PO DAILY Patient Comments: TAKE 1 TABLET BY MOUTH EVERY DAY WITH MEALS Referrals Follow up/Referrals: Larry Quezada [Primary Care Provider] - See instructions Activity Restrictions/Add. Instructions Additional Instructions/Restrictions: Drink plenty of fluids. Take tylenol or ibuprofen for pain or fever. Take the medications as directed. Follow up with your regular doctor. GO TO THE ER FOR ANY WORSENING SYMPTOMS Don't start the oral steroids (medrol dose pack) until tomorrow since you had the shot here Clinical Impressions Clinical Impression: Acute viral syndrome, Bronchitis Stand Alone Forms Stand Alone Forms: Work/School Release Instructions Patient Instructions: DI for Acute Bronchitis, Ceftriaxone Injection, Methylprednisolone Injection Print Language Print Language: Japanese Discharge ED Provider: Blayne Whitten [facility] [place] HPI General Stated complaint: congestion, body aches, tired Mode of Arrival: Ambulatory Source of Information: Patient Time Seen by Provider: 09/16/24 13:40 Description of Symptoms (Recalled from Triage Doc. 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 levothyroxine 100 mcg tablet 100 mcg PO DAILY 09/16/24 09/16/24 tenofovir alafenamide 25 mg tablet 25 mg PO DAILY 09/16/24 09/16/24 (Vemlidy) Previous Rx's ?Medication ?Instructions ?Recorded acyclovir 400 mg tablet 400 mg PO TID 7 days #21 tabs 09/16/24 acyclovir 5 % topical ointment 1 applic topical 5XDAY 4 days #5 09/16/24 grams azithromycin 250 mg tablet 250 mg PO UD DOSE PK #6 tabs 09/16/24 (Zithromax) benzonatate 100 mg capsule 100 mg PO TIDP PRN Cough #30 caps 09/16/24 methylprednisolone 4 mg tablets in 4 mg PO DIRECTED 6 days #21 tabs 09/16/24 a dose pack Allergies Allergy/AdvReac Type Severity Reaction Status Date / Time No Known Allergies Allergy Verified 01/01/24 15:57 Worker's Comp Is this a Worker's Comp case?: No [facility] Disclaimer: The information contained in this section may have been updated after the patient was seen, as this information can be updated by other users. Medical History No significant past medical history Social History Smoking Status: Current every day smoker tobacco type: cigarettes packs per day: 1 alcohol intake: never substance use type: denies use current occupational status: unemployed Travel in the last 8 weeks: None ROS Obtained: Yes All systems reviewed & no additional complaints except as documented Constitutional Constitutional: Reports poor appetite Eyes Eyes: Reports system reviewed and no additional complaints, except as documented ENT Ears, Nose, Mouth, and Throat: Reports as per HPI Cardiovascular Cardiovascular: Reports system reviewed and no additional complaints, except as documented and Denies chest pain Respiratory Respiratory: Denies shortness of breath, Reports chest congestion, Reports cough, Denies stridor and Denies wheezing Gastrointestinal Gastrointestingal: Reports system reviewed and no additional complaints, except as documented; Denies abdominal pain, diarrhea or vomiting Musculoskeletal Musculoskeletal: Reports system reviewed and no additional complaints, except as documented and Denies arthralgias Integumentary/Breasts Skin/Breast: Reports system reviewed and no additional complaints, except as documented and Denies rash Neurologic Neurologic: Denies paresthesias Allergic/Immunologic Allergic/Immunologic: Denies wheezing Physical Exam General General appearance: alert and in no apparent distress Eye Eye exam: Present normal appearance, PERRL and EOMI ENT ENT exam: Present mucous membranes moist and normal external ear exam Expanded ENT Exam External ear exam: Present normal external inspection TM/Canal exam: Bilateral TM: erythema and bulging Nose exam: Absent sinus tenderness Nasal speculum exam: Bilateral: normal Mouth exam: Present normal external inspection; Absent drooling Teeth exam: Present normal inspection Throat exam: Present tonsillar erythema and tonsillomegaly Neck Neck exam: Present normal inspection, full ROM and trachea midline; Absent tenderness, lymphadenopathy or thyromegaly Chest Chest inspection: Present normal inspection and symmetric chest wall rise; Absent tenderness or rash Respiratory Respiratory exam: Present normal lung sounds bilaterally; Absent respiratory distress, wheezes, stridor or accessory muscle use Cardiovascular Cardiovascular exam: Present regular rate, normal rhythm and normal heart sounds Abdominal Exam Abdominal exam: Present soft; Absent distention, tenderness, guarding, rebound or rigidity Extremities Exam Extremities exam: Present normal inspection, full ROM and normal capillary refill; Absent tenderness or calf tenderness Back Exam Back exam: Present normal inspection and full ROM; Absent tenderness Neurological Exam Neurological exam: Present alert and oriented X3 Psychiatric Psychiatric exam: Present normal affect and normal mood Skin Skin exam: Present warm, dry, intact and normal color Lymphatic Lymphatic Findings: no adenopathy Medical Decision Making Medical Records Medical records reviewed: No I reviewed the patient's medical records. Screening: Per USPSTF and CDC recommendations, given the prevalence of disease in our region, it is our hospital?s policy to screen for HIV and viral Hepatitis for all patients aged 18 and over and those with ongoing risk factors. [place]ron Inquiry Pt receiving controlled substance: No Vital Signs: 09/16/24 13:38 Temperature 98.6 F Temperature Source Oral Pulse Rate [Left Radial] 69 Respiratory Rate 18 Blood Pressure [Left Arm] 117/46 L Blood Pressure Mean [Left Arm] 69 02 Sat by Pulse Oximetry 97 Lab Data Lab Results 09/16/24 13:44: Influenza Type A Ag Negative, Influenza Type B Ag Negative
[2024-09-16] MEDS: LIDOCAINE 1% 5ML PF VIAL IM (15:16)
[2024-09-16] MEDS: METHYLPREDNISOLONE SOD SUCC 125MG VIAL 125 MG IM (15:16)
[2024-09-16] MEDS: cefTRIAXone 1GM VIAL 1 GM IM (15:16)
[2024-09-16 15:52] VITALS: BP 117/86; PULSE 69; RESP 18; TEMP 37
[2024-09-16 16:00] LABS: Influenza A, PCR Not Detected (NotDetected); Influenza B, PCR Not Detected (NotDetected)
[2024-09-16 16:27] LABS: Coronavirus 19, PCR Detected (NotDetected)
== END 2024-09-16 15:58 | disposition home or self-care (01) ==
PROVIDERS: Emergency Provider Nurse Practitioner Family; PCP Family Medicine
DX: B34.9 Viral infection, unspecified (principal); J20.9 Acute bronchitis, unspecified; R53.83 Other fatigue; R63.8 Other symptoms and signs concerning food and fluid intake; R05.9 Cough, unspecified
CPT/HCPCS: 87636; 87804; 99212; G0381; J0696; J2919

== ENCOUNTER 2025-08-31 07:40 | Outpatient (CLI) | payer MEDICAID, SELFPAY ==
--- OUTSIDE RECORDS SUMMARY | 2025-07-26 08:30 | XMS_ITS | Encounter Summary ---
[facility] Address [address] [place] [address] Care Team Providers Care Upper Inspector Name Role Phone Larry Quezada MD Primary Care Provider [phone] Reason for Visit * Reason Comments Hypothyroidism 6 mo Fatigue X states that she loera sn't bee feeling right recently Encounter Details Date Type Department Care Team (Latest Contact Info) Description 07/26/2025 9:30 AM EDT Office Visit [facility] [address] [place] [address] Larry Quezada MD [address] [place] [address] Acquired hypothyroidism (Primary Dx); Microcytic anemia; Hirsutism; Generalized anxiety disorder; Trichotillomania; Elevated cholesterol Social History Tobacco Use Types Packs/Day Years Used Date Smoking Tobacco: Former Cigarettes S tarted: 1997 Smokeless Tobacco: Never Tobacco Cessation:Counseling Given: Not Answered Alcohol Use Standard Drinks/Week Comments Yes 0 (1 standard drink = 0.6 oz pur e alcohol) rare, social PHQ-2 Answer Date Recorded Retired PHQ-9: Brief Depression Severity Measure Score 0 02/17/2023 PHQ-2 Answer Date Recorded Patient Health Questionnaire-2 Score 0 01/04/2025 Comments No Sex and Gender Information Value Date Recorded Sex Assigned at Not on file Legal Sex Female 11:25 AM EST Gender Identity Not on file Sexual Orientation Not on file 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 Not on file Not on file documented as of this encounter Last Filed Vital Signs Vital Sign Reading Time Taken Comments Blood Pressure 110/66 07/26/2025 9:26 AM EDT Pulse 70 07/26/2025 9:26 AM EDT Temperature 36.9 C (98.4 F) 07/26/2025 9:26 AM EDT Respiratory Rate 18 07/26/2025 9:26 AM EDT Oxygen Saturation 99% 07/26/2025 9:26 AM EDT Inhaled Oxygen Concentration - - Weight 58.1 kg (128 lb) 07/26/2025 9:26 AM EDT Height 162.6 cm (5' 4.02 ) 07/26/2025 9:26 AM ED T Body Mass Index 21.96 07/26/2025 9:26 AM EDT documented in this encounter Progress Notes * Larry Quezada MD - 07/26/2025 9:30 AM EDT Subjective Atiya Torre is a 45 y.o. female. Hypothyroidism Symptoms include anxiety and fatigue. Fatigue Symptoms: fatigue Hypothyroidism Atiya Torre is a 45 y.o. female who presents for evaluation of thyroid function. Pt is doing well, and is compliant with medications and does not have any issues with the medication. The problem has been unchanged. The hypothyroidism is due to hypothyroidism. Pt is due for labs. She has been more and more stressed She had a history of trichotillomania and has noted pulloing on hair again Just lots of stress, mom, son, work, property She had a panic attack the other dya as well, again things just getting to her more and more She is still taking her iron on occasion Does have some constipation Takes it when she is more tired The following portions of the patient's history were reviewed and updated as appropriate: allergies, current medications, past family history, past medical history, past social history, past surgicalhistory, and problem list. Review of Systems Constitutional: Positive for fatigue. Psychiatric/Behavioral: The patient is nervous/anxious. Objective Physical Exam Vitals and nursing note reviewed. Constitutional: General: She is not in acute distress. Appearance: Normal appearance. She is well-developed. Cardiovascular: Rate and Rhythm: Normal rate and regular rhythm. Heart sounds: Normal heart sounds. Pulmonary: Effort: Pulmonary effort is normal. Breath sounds: Normal breath sounds. Neurological: Mental Status: She is alert and oriented to person, place, and time. Psychiatric: Mood and Affect: Mood normal. Behavior: Behavior normal. Thought Content: Thought content normal. Judgment: Judgment normal. Assessment & Plan Diagnoses and all orders for this visit: 1. Acquired hypothyroidism (Primary) - levothyroxine (Synthroid) 100 MCG tablet; Take 1 tablet by mouth Daily. Dispense: 30 tablet; Refill: 5 - Comprehensive Metabolic Panel - TSH+Free T4 2. Microcytic anemia - ferrous sulfate 325 (65 FE) MG tablet; Take 1 tablet by mouth Daily With Breakfast. Dispense: 30 tablet; Refill: 5 - CBC & Differential - Comprehensive Metabolic Panel - Iron Profile w/o Ferritin 3. Hirsutism 4. Generalized anxiety disorder - sertraline (Zoloft) 100 MG tablet; 1/2 PO QD 6 days then 1 PO QD Dispense: 30 tablet; Refill: 5 5. Trichotillomania - sertraline (Zoloft) 100 MG tablet; 1/2 PO QD 6 days then 1 PO QD Dispense: 30 tablet; Refill: 5 6. Elevated cholesterol - Comprehensive Metabolic Panel - Lipid Panel Continue synthroid 100 and recheck thyroid labs No change in iron, recheck levels today. She has been sproradic in use of this supplement Mood has been worse, more on edge and anxious. Stress from multiple issues. Will stat zolot and pt to call back INB in 3-5 weeks. Plan to recheck lipids documented in this encounter Plan of Treatment Upcoming Encounters Date Type Department Care Team (Late st Contact Info) Description 01/29/2026 9:15 AM EDT Office Visit [facility] [address] [place] [address] Larry Quezada MD [address] [place] [address] documented as of this encounter Procedures Procedure Name Priority Date/Time Associated Diagnosis Comments TSH+FREE T4 Routine 07/26/2025 9:54 AM EDT Acquired hypothyroidism IRON PROFILE Routine 07/26/2025 9:54 AM EDT Microcytic anemia CBC AND DIFFERENTIAL Routine 07/26/2025 9:54 AM EDT Microcytic anemia LIPID PANEL Routine 07/26/2025 9:54 AM EDT Elevated cholesterol COMPREHENSIVE METABOLIC PANEL Routine 07/26/2025 9:54 AM EDT Acquired hypothyroidism Microcytic anemia Elevated cholesterol documented in this encounter Results * (ABNORMAL) Iron Profile w/o Ferritin (07/26/2025 9:54 AM EDT) Pathologist [facility] TIBC 482(H) 250 - 450 ug/dL [facility] UIBC 464(H) 131 - 425 ug/dL [facility] Iron 18(L) 27 - 159 ug/dL [facility] Iron Saturation 4(L) 15 - 55 % [facility] Blood 07/26/2025 9:54 AM EDT 07/26/2025 Narrative [facility] ([facility]) - 07/27/2025 7:09 AM EDT Performed at: 01 - [facility] [id number] Office Support Associate: Zana Sanchez PhD, Phone: [phone] Patient Fasting: Y us Larry Quezada MD LAB BLOOD ORDERABLES Final Resu lt [facility] (AMBULATORY) [address] [place] [address], [facility] [address] [place] [address], * TSH+Free T4 (07/26/2025 9:54 AM EDT) Pathologist [facility] TSH 2.160 0.450 - 4.500 uIU/mL [facility] Free T4 1.30 0.82 - 1.77 ng/dL [facility] Blood 07/26/2025 9:54 AM EDT 07/26/2025 Narrative [facility] ([facility]) - 07/27/2025 7:09 AM EDT [facility]formed at: [facility] [address] [place], [place] [id number] Office Support Associate: Zana Sanchez PhD, Phone: [phone] Patient Fasting: Y Larry Quezada MD LAB BLOOD ORDERABLES Final Resu lt [facility] ([facility]BUL[facility]ORY) [address] [place] [address], [place] [phone] [facility] [address] [place] [address], [place] [phone] * Lipid Panel (07/26/2025 9:54 AM EDT) Total Cholesterol 169 100 - 199 mg/dL [facility] Triglycerides 61 0 - 149 mg/dL [facility] HDL Cholesterol 60 >39 mg/dL [facility] VLDL Cholesterol Joe 12 5 - 40 mg/dL [facility] LDL Chol Calc (NIH) 97 0 - 99 mg/dL [facility] Blood 07/26/2025 9:54 AM EDT 07/26/2025 Narrative [facility] ([facility]) - 07/27/2025 7:09 AM EDT Performed at: - [facility] [address] [place], [place] [id number] Office Support Associate: Zana Sanchez PhD, Phone: [phone] Patient Fasting: Y us Larry Quezada MD LAB BLOOD ORDERABLES Final Resu lt Performing Organization Address City/[facility]/ZIP Co de Phone Number [facility] ([facility]UL[facility]) [address] [place] [address], [place] [phone] [facility] [address] [place] [address], [place] [phone] * Comprehensive Metabolic Panel (07/26/2025 9:54 AM EDT) Glucose 86 70 - 99 mg/dL [facility] BUN 10 6 - 24 mg/dL [facility] Creatinine 0.66 0.57 - 1.00 mg/dL [facility] EGFR Result 112 >59 mL/min/1.7 3 [facility] BUN/Creatinine Ratio 15 9 - 23 [facility] Sodium 139 134 - 144 mmol/L [facility] Potassium 4.0 3.5 - 5.2 mmol/L [facility] Chloride 104 96 - 106 mmol/L [facility] Total CO2 24 20 - 29 mmol/L [facility] Calcium 9.0 8.7 - 10.2 mg/dL [facility] Total Protein 6.7 6.0 - 8.5 g/dL [facility] Albumin 4.2 3.9 - 4.9 g/dL [facility] Globulin 2.5 1.5 - 4.5 g/dL [facility] Total Bilirubin 0.3 0.0 - 1.2 mg/dL [facility] Alkaline Phosphatase 72 41 - 116 IU/L [facility] AST (SGOT) 19 0 - 40 IU/L [facility] ALT (SGPT) 9 0 - 32 IU/L [facility] Blood 07/26/2025 9:54 AM EDT 07/26/2025 Narrative [facility] ([facility]UL[facility]) - 07/27/2025 7:09 AM EDT Performed at: 01 - [address] [id number] Office Support Associate: Zana Sanchez PhD, Phone: [phone] Patient Fasting: Y us Larry Quezada MD LAB BLOOD ORDERABLES Final Resu lt [facility] ([facility]) [address] [place] [address], [facility] [address] [place] [address], * (ABNORMAL) CBC & Differential (07/26/2025 9:54 AM EDT) WBC 4.2 3.4 - 10.8 x10E3/uL [facility] RBC 4.61 3.77 - 5.28 x10E6/uL [facility] Hemoglobin 10.2(L) 11.1 - 15.9 g/dL [facility] Hematocrit 35.8 34.0 - 46.6 % [facility] MCV 78(L) 79 - 97 fL [facility] MCH 22.1(L) 26.6 - 33.0 pg [facility] MCHC 28.5(L) 31.5 - 35.7 g/dL [facility] RDW 15.6(H) 11.7 - 15.4 % [facility] Platelets 173 150 - 450 x10E3/uL [facility] Neutrophil Rel % 56 Not Estab. % [facility] Lymphocyte Rel % 33 Not Estab. % [facility] Monocyte Rel % 9 Not Estab. % [facility] Eosinophil Rel % 1 Not Estab. % [facility] Basophil Rel % 1 Not Estab. % [facility] Neutrophils Absolute 2.4 1.4 - 7.0 x10E3/uL [facility] Lymphocytes Absolute 1.4 0.7 - 3.1 x10E3/uL [facility] Monocytes Absolute 0.4 0.1 - 0.9 x10E3/uL [facility] Eosinophils Absolute 0.1 0.0 - 0.4 x10E3/uL [facility] Basophils Absolute 0.1 0.0 - 0.2 x10E3/uL [facility] Immature Granulocyte Rel % 0 Not Estab. % [facility] Immature Grans Absolute 0.0 0.0 - 0.1 x10E3/uL [facility] Blood 07/26/2025 9:54 AM EDT 07/26/2025 Narrative [facility] ([facility]) - 07/27/2025 7:09 AM EDT Performed at: 01 - [address] [id number] Office Support Associate: Zana Sanchez PhD, Phone: [phone] Patient Fasting: Y us Larry Quezada MD LAB BLOOD ORDERABLES Final Resu lt [facility] ([facility]) [address] [place] [address], [facility] [address] [place] [address], documented in this encounter Visit Diagnoses Diagnosis Acquired hypothyroidism- Primary Unspecified hypothyroidism Microcytic anemia Unspecified iron deficiency anemia Hirsutism Generalized anxiety disorder Trichotillomania Other disorder of impulse control Elevated cholesterol Pure hypercholesterolemia documented in this encounter Care Teams Upper Inspector Relationship Specialty Start Date End Date Larry Quezada MD [address] [place] [id number] PCP - General Family Medicine 01/21/22 documented as of this encounter
--- OUTSIDE RECORDS SUMMARY | 2025-08-31 07:43 | XMS_ITS | Encounter Summary ---
[facility] Address [address] [id number] Care Team Providers Care Table Setter Name Role Phone Larry Quezada MD Primary Care Provider [phone] Encounter Details Date Type Department Care Team (Late st Contact Info) Description 02/23/2025 Results Follow-Up [facility] [address] [facility] [place] [address] Lrary Quezada MD [address] [facility] [place] [address] Social History Tobacco Use Types Packs/Day Years Used Date Smoking Tobacco: Every Day Cigarettes 20 0.5 Smokeless Tobacco: Never Alcohol Use Standard Drinks/Week Comments Yes 0 [...] 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 Not on file Not on file documented as of this encounter Plan of Treatment Upcoming Encounters Date Type Department Care Team (Late st Contact Info) Description 01/29/2026 9:15 AM EDT Office Visit [facility] [address] [facility] [place] [place] [address] Larry Quezada MD [address] [facility] [place] [address] documented as of this encounter Visit Diagnoses Not on filedocumented in this encounter Care Teams Table Setter Relationship Specialty Start Date End Date Larry Quezada MD [address] [place] [address] PCP - General Family Medicine 01/21/22 documented as of this encounter
--- OUTSIDE RECORDS SUMMARY | 2025-08-31 07:43 | XMS_ITS | Encounter Summary ---
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 Not on file Not on file documented as of this encounter Plan of Treatment Upcoming Encounters Date Type Department Care Team (Late st Contact Info) Description 01/29/2026 9:15 AM EDT Office Visit [facility] [address] [facility] [address] Larry Quezada MD [address] [place] [address] documented as of this encounter Visit Diagnoses Not on filedocumented in this encounter Care Teams Rn Sexual Assault Relationship Specialty Start Date End Date Larry Quezada MD [address] [place] [address] PCP - General Family Medicine 01/21/22 documented as of this encounter
--- OUTSIDE RECORDS SUMMARY | 2025-08-31 07:43 | XMS_ITS | Encounter Summary ---
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 on file Not on file Not on file documented as of this encounter Plan of Treatment Upcoming Encounters Date Type Department Care Team (Late st Contact Info) Description 01/29/2026 9:15 AM EDT Office Visit [facility] [address] [facility] [place] [address] Larry Quezada MD [address] [facility] [place] [address] documented as of this encounter Visit Diagnoses Not on filedocumented in this encounter Care Teams Lime Kiln And Recausticizing Operator Relationship Specialty Start Date End Date Larry Quezada MD [address] [place] [address] PCP - General Family Medicine 01/21/22 documented as of this encounter
--- OUTSIDE RECORDS SUMMARY | 2025-08-31 07:43 | XMS_ITS | Encounter Summary ---
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 on file Not on file Not on file documented as of this encounter Plan of Treatment Upcoming Encounters Date Type Department Care Team (Late st Contact Info) Description 01/29/2026 9:15 AM EDT Office Visit [facility] MEDICINE [address] [facility] [place] [address] Larry Quezada MD [address] [place] [address] documented as of this encounter Results * T3, free (02/22/2025 11:21 AM EDT) T3, Free 2.4 2.0 - 4.4 pg/mL [facility] Blood 02/22/2025 11:2 1 AM EDT 02/22/2025 Narrative [facility] ([facility]) - 02/23/2025 8:11 AM EDT Performed at: - [address] [id number] Byproducts Operator: Zana Sanchez PhD, Phone: [phone] Patient Fasting: N Lrary Quezada MD LAB BLOOD ORDERABLES Final Resu lt Performing Organization Address City/[facility] [[email or web address]] Co de Phone Number [facility] ([facility]BUL[facility]ORY) [address] [place] [address], [facility] [address] [place] [address], [place] [phone] * TSH+Free T4 (02/22/2025 11:21 AM EDT) TSH 2.450 0.450 - 4.500 uIU/mL [facility] Free T4 1.04 0.82 - 1.77 ng/dL [facility] Blood 02/22/2025 11:2 1 AM EDT 02/22/2025 Narrative [facility] ([facility]) - 02/23/2025 8:11 AM EDT Performed at: - [address] [id number] Byproducts Operator: Zana Sanchez PhD, Phone: [phone] Patient Fasting: N Larry Quezada MD LAB BLOOD ORDERABLES Final Resu lt Performing Organization Address City/[facility]/ZIP Co de Phone Number [facility] ([facility]) [address] [place] [address], [facility] [address] [place] [address], * (ABNORMAL) CBC & Differential (02/22/2025 11:21 AM EDT) WBC 3.5 3.4 - 10.8 x10E3/uL [facility] RBC 4.45 3.77 - 5.28 x10E6/uL [facility] Hemoglobin 10.1(L) 11.1 - 15.9 g/dL [facility] Hematocrit 35.1 34.0 - 46.6 % [facility] MCV 79 79 - 97 fL [facility] MCH 22.7(L) 26.6 - 33.0 pg [facility] MCHC 28.8(L) 31.5 - 35.7 g/dL [facility] RDW 20.7(H) 11.7 - 15.4 % [facility] Platelets 132(L) 150 - 450 x10E3/uL [facility] Neutrophil Rel % 56 Not Estab. % [facility] Lymphocyte Rel % 34 Not Estab. % [facility] Monocyte Rel % 7 Not Estab. % [facility] Eosinophil Rel % 2 Not Estab. % [facility] Basophil Rel % 1 Not Estab. % [facility] Neutrophils Absolute 1.9 1.4 - 7.0 x10E3/uL [facility] Lymphocytes Absolute 1.2 0.7 - 3.1 x10E3/uL [facility] Monocytes Absolute 0.3 0.1 - 0.9 x10E3/uL [facility] Eosinophils Absolute 0.1 0.0 - 0.4 x10E3/uL [facility] Basophils Absolute 0.1 0.0 - 0.2 x10E3/uL [facility] Immature Granulocyte Rel % 0 Not Estab. % [facility] Immature Grans Absolute 0.0 0.0 - 0.1 x10E3/uL [facility] Blood 02/22/2025 11:2 1 AM EDT 02/22/2025 Narrative [facility] ([facility]) - 02/23/2025 8:11 AM EDT Performed at: 01 - [facility] [address] [place], [place] [id number] Byproducts Operator: Zana Sanchez PhD, Phone: [phone] Patient Fasting: N Larry Quezada MD LAB BLOOD ORDERABLES Final Resu lt Performing Organization Address [facility]/ZIP Co de Phone Number [facility] ([facility]) [address] [place] [address], [place] [phone] [facility] [address] [place] [address], [place] [phone] * Iron Profile (02/22/2025 11:21 AM EDT) TIBC 393 250 - 450 ug/dL [facility] UIBC 287 131 - 425 ug/dL [facility] Iron 106 27 - 159 ug/dL [facility] Iron Saturation 27 15 - 55 % [facility] Blood 02/22/2025 11:2 1 AM EDT 02/22/2025 Narrative [facility] ([facility]) - 02/23/2025 8:11 AM EDT Performed at: - [facility] [address] [place], [place] [id number] Byproducts Operator: Zana Sanchez PhD, Phone: [phone] Patient Fasting: N Larry Quezada MD LAB BLOOD ORDERABLES Final Resu lt Performing Organization Address [facility]/ZIP Co de Phone Number [facility] ([facility]) [address] [place] [address], [place] [phone] [facility] [address] [place] [address], [place] [phone] documented in this encounter Visit Diagnoses Diagnosis Acquired hypothyroidism- Primary Unspecified hypothyroidism Microcytic anemia Unspecified iron deficiency anemia documented in this encounter Care Teams Seed Core Operator Relationship Specialty Start Date End Date Larry Quezada MD [address] [place] [address] PCP - General Family Medicine 01/21/22 documented as of this encounter
--- OUTSIDE RECORDS SUMMARY | 2025-08-31 07:43 | XMS_ITS | Clinical Summary ---
Author Organization [facility] Address [address] [place] [address] Care Team Providers Care Store Loss Prevention Manager Name Role Phone Larry Quezada MD Primary Care Provider [phone] Allergies No known active allergies Medications buprenorphine-nalox one (SUBOXONE) 8-2 MG per SL tablet DISSOLVE 2 TABLETS UNDER THE TONGUE ONCE DAILY 2 Active Vemlidy 25 MG tablet tablet TAKE 1 TABLET BY MOUTH EVERY DAY WITH MEALS Active azithromycin (ZITHROMAX) 250 MG tablet 4 Active acyclovir (ZOVIRAX) 5 % ointment 4 Active acyclovir (ZOVIRAX) 400 MG tablet 4 Active sertraline (Zoloft) 100 MG tabletIndications:G eneralized anxiety disorder,Trichotill omania 1/2 PO QD 6 days then 1 PO QD 30 tablet 5 5 Active levothyroxine (Synthroid) 100 MCG tabletIndications:A cquired hypothyroidism Take 1 tablet by mouth Daily. 30 tablet 5 5 Active ferrous sulfate 325 (65 FE) MG tabletIndications:M icrocytic anemia Take 1 tablet by mouth Daily With Breakfast. 30 tablet 5 5 Active Active Problems Problem Noted Date Diagnosed Date Trichotillomania 07/26/2025 Generalized anxiety disorder 07/26/2025 Moderate cervical dysplasia 08/29/2024 Bilateral ovarian cysts 08/08/2024 Menorrhagia with irregular cycle 07/25/2024 Hypothyroid 12/07/2023 Other specified anemias 12/07/2023 Elevated liver enzymes 12/01/2023 Abnormal uterine bleeding (AUB) 08/10/2023 Chronic type B viral hepatitis 04/16/2023 Resolved Problems Problem Noted Date Diagnosed Date Resolved Date Moderate cervical dysplasia 09/19/2024 07/26/2025 Encounters Date Type Department Care Team Description 07/27/2025 Results Follow-Up [facility] [address] [place] [address] Larry Quezada MD 07/26/2025 9:30 AM EDT Office Visit [facility] [address] [place] [address] Larry Quezada MD Acquired hypothyroidism (Primary Dx); Microcytic anemia; Hirsutism; Generalized anxiety disorder; Trichotillomania; Elevated cholesterol 07/26/2025 Travel from Last 3 Months Immunizations Immunization Administration Dates Next Due Td (TDVAX) 05/20/2002 Tdap 02/03/2022,08/12/2016 Family History Medical History Relation Name Comments Diabetes Father Heart disease Father Hypertension Father Liver disease Mother Ovarian cancer Mother Breast cancer Neg Hx Relation Name Status Comments Father Mother Social History Tobacco Use Types Packs/Day Years [...] 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 on file Not on file Last Filed Vital Signs Vital Sign Reading [...] Mass Index 21.96 07/26/2025 9:26 AM EDT Plan of Treatment Upcoming Encounters Date Type Department Care Team (Late st Contact Info) Description 01/29/2026 9:15 AM EDT Office Visit [facility] [address] [place] [address] Larry Quezada MD [address] [place] [address] Health Maintenance Due Date Last Done Comments Hepatitis B (1 of 3 - 19+ 3-dose series) 2001 Annual Gynecologic Pelvic and Breast Exam 07/26/2025 07/25/2024 ANNUAL PHYSICAL 01/24/2026 01/24/2025 LIPID PANEL 07/26/2026 07/26/2025, 01/24/2025 MAMMOGRAM 09/14/2026 09/14/2024, 06/13, 05/22/2023 PAP SMEAR 04/10/2028 04/10/2025, 07/12, 01/18/2024, Additional history exists TDAP/TD VACCINES (4 - Td or Tdap) 02/04/2032 02/03/2022, 08/12/2016, 05/20/2002 HEPATITIS C SCREENING Completed 02/17/2023 INFLUENZA VACCINE Discontinued Pneumococcal Vaccine 0-49 Aged Out No longer eligible based on patient's age to complete this topic Procedures Procedure Name Priority Date/Time Associated Diagnosis Comments CBC AND DIFFERENTIAL Routine 07/26/2025 9:54 AM EDT Microcytic anemia IRON PROFILE Routine 07/26/2025 9:54 AM EDT Microcytic anemia TSH+FREE T4 Routine 07/26/2025 9:54 AM EDT Acquired hypothyroidism LIPID PANEL Routine 07/26/2025 9:54 AM EDT Elevated cholesterol COMPREHENSIVE METABOLIC PANEL Routine 07/26/2025 9:54 AM EDT Acquired hypothyroidism Microcytic anemia Elevated cholesterol LIQUID-BASED PAP SMEAR WITH HPV GENOTYPING REGARDLESS OF INTERPRETATION, [facility] (JANICE,COR,MAD) Routine 04/10/2025 2:52 PM EDT Moderate cervical dysplasia MAMMO DIAGNOSTIC DIGITAL TOMOSYNTHESIS BILATERAL W CAD Routine 09/14/2024 9:44 AM EST History of abnormal mammogram HEPATITIS PANEL, ACUTE Routine 02/17/2023 2:27 PM EDT Acute viral hepatitis B without coma and without delta agent from Last 3 Months or Most Recently Relevant to Health Maintenance Results * TSH+Free T4 (07/26/2025 9:54 AM EDT) TSH 2.160 0.450 - 4.500 uIU/mL [facility] Free T4 1.30 0.82 - 1.77 ng/dL [facility] Blood 07/26/2025 9:54 AM EDT 07/26/2025 Narrative [facility] (AMBULATORY) - 07/27/2025 7:09 AM EDT Performed at: 01 - [facility] [id number] Technical Services Analyst: Zana Sanchez PhD, Phone: [phone] Patient Fasting: Y us Larry Quezada MD LAB BLOOD ORDERABLES Final Resu lt [facility] ([facility]BUL[facility]ORY) [address] [place] [address], [place] [phone] [facility] [address] [place] [address], * (ABNORMAL) Iron Profile w/o Ferritin (07/26/2025 9:54 AM EDT) Pathologist [facility] TIBC 482(H) 250 - 450 ug/dL [facility] UIBC 464(H) 131 - 425 ug/dL [facility] Iron 18(L) 27 - 159 ug/dL [facility] Iron Saturation 4(L) 15 - 55 % [facility] Blood 07/26/2025 9:54 AM EDT 07/26/2025 Narrative [facility] ([facility]) - 07/27/2025 7:09 AM EDT [facility]formed at: - [facility] [address] [place] [id number] Technical Services Analyst: Zana Sanchez PhD, Phone: [phone] Patient Fasting: Y us Larry Quezada MD LAB BLOOD ORDERABLES Final Resu lt [facility] (AMBULATORY) [address] [place] [address], [facility] [address] [place] [address], * (ABNORMAL) CBC & Differential (07/26/2025 9:54 AM EDT) [facility] WBC 4.2 3.4 - 10.8 x10E3/uL [facility] [...] 07/26/2025 9:54 AM EDT 07/26/2025 Narrative [facility] (AMBULATORY) - 07/27/2025 7:09 AM EDT Performed at: [address] [place] [id number] Technical Services Analyst: Zana Sanchez PhD, Phone: [phone] Patient Fasting: Y us Larry Quezada MD LAB BLOOD ORDERABLES Final Resu lt [facility] (AMBULATORY) [address] [id number], [place] [phone] [facility] [address] [place] [address], * Lipid Panel (07/26/2025 9:54 AM EDT) Pathologist [facility] Total Cholesterol 169 100 - 199 mg/dL [facility] Triglycerides 61 0 - 149 mg/dL [facility] HDL Cholesterol 60 >39 mg/dL [facility] VLDL Cholesterol Carmen 12 5 - 40 mg/dL [facility] LDL Chol Calc ([facility]) 97 0 - 99 mg/dL [facility] Blood 07/26/2025 9:54 AM EDT 07/26/2025 Narrative [facility] ([facility]) - 07/27/2025 7:09 AM EDT Performed at: 01 - [facility] [place] [id number] [place], [place] [id number] Technical Services Analyst: Zana Sanchez PhD, Phone: [phone] Patient Fasting: Y us Larry Quezada MD LAB BLOOD ORDERABLES Final Resu lt [facility] [address] [place] [address], [facility] [address] [place] [address], * Comprehensive Metabolic Panel (07/26/2025 9:54 AM EDT) [facility] Glucose 86 70 - 99 mg/dL [facility] [...] 7:09 AM EDT Performed at: 01 - [facility] [address] [place], [place] [id number] Technical Services Analyst: Zana Sanchez PhD, Phone: [phone] Patient Fasting: Y us Larry Quezada MD LAB BLOOD ORDERABLES Final Resu lt [facility] ([facility]) [address] [place] [address], [facility] [address] [place] [address], * LIQUID-BASED PAP SMEAR WITH HPV GENOTYPING REGARDLESS OF INTERPRETATION (JANICE,COR,MAD) (04/10/2025 2:52 PM EDT) Reference Lab Report [facility] [address] [place] [address] or [phone] Naeem Kirkland M.D., Medical Technologist PATIENT NAME LABORATORY NO. [facility] M[facility]URE. [id number] AGE SEX SSN CLIENT REF # [facility] ([place]) 44 1980 F [id number] [facility][note 3] [address] REQUESTING Debbie [place] [address] [place] DATE COLLECTED DATE RECEIVED DATE REPORTED 04/10/2025 04/10/2025 04/12/2025 ThinPrep Pap with Hologic Genius Imaging DIAGNOSIS: Negative for intraepithelial lesion or malignancy Multiple factors can influence accuracy of Pap tests; therefore, screening at regular intervals is necessary for early cancer detection. COMMENT: Benign cellular changes associated with reactive/reparativ e changes are present. Professional interpretation rendered by Austin Torres M.D.,F.C.A.P. at [facility], [employer], [address] [place] [address]. SPECIMEN ADEQUACY: SATISFACTORY FOR EVALUATION Transformation zone is present. SOURCE OF SPECIMEN: CERVICAL/ENDOCERVI CARMEN SLIDES: 1 CLINICAL HISTORY: Moderate cervical dysplasia HPV HR-HPV POOL: Negative The Aptima HPV assay is an in vitro nucleic acid amplification test for the qualitative detection of E6/E7 viral messenger RNA from 14 high risk types of HPV in cervical specimens. The high risk HPV types detected include: 16, 18, 31, 33, 35, 39, 45, 51, 52, 56, 58, 59, 66, 68 AIR BRAKE RIGGER: WILLIAM, REINALDO, (ASCP) REVIEWED, DIAGNOSED AND ELECTRONICALLY SIGNED BY: Austin Torres M.D.,F.C.A.P. CPT CODES: [id number], [id number], [id number] 04/12/2025 10:23 AM EDT [facility] ThinPrep Vial Cervix uteri structure / Unknown Collection / Unknown 04/10/2025 2:52 PM EDT 04/10/2025 2:52 PM EDT Nando Abernathy MD PATHOLOGY/CYTOLOGY ORDER LUISITO Final Result [facility]
[address] [place] [address], * Mammo Diagnostic Digital Tomosynthesis Bilateral With CAD (09/14/2024 9:44 AM EST) Anatomical Region Laterality Modality Breast Bilateral Mammography 09/14/2024 10:0 4 AM EST Impressions 09/14/2024 10:12 AM EST No thickened changes seen mammographically in the appearance of either breast including the right upper outer quadrant core biopsy site as well as the calcifications which were biopsied in the left upper outer quadrant. No change is seen sonographically in several oval benign-appearing masses including the mass which was biopsied with benign results. The palpable mass the patient feels corresponds to the mass which is undergoing follow-up in the 10:00 distribution on the right as described above. RECOMMENDATION: Recommend additional follow-up bilateral diagnostic mammogram in 1 year to include left CC and ML magnification views. Recommend clinical follow-up of the right breast. ACR BI-RADS CATEGORY: 3, PROBABLY BENIGN CAD was utilized. The standard false-negative rate of mammography is between 10% and 25%. Complex patterns or increased breast density will markedly elevate the false-negative rate of mammography. A letter, in lay terminology, with the results of this exam was given to the patient at the time of the visit. At our facility, a triangular marker is positioned over a palpable area of concern indicated by the patient. A match-e-be-nash-she-wish band marker is placed over a visible skin lesion. A linear marker indicates a scar. _ Physician Order Diagnostic 12 Month follow up Mammogram with Breast Ultrasound if needed. Diagnosis: Abnormal Mammogram This report was finalized on 09/14/2024 10:[address] Debbie Ornelas MD. Narrative 09/14/2024 10:12 AM EST BILATERAL DIAGNOSTIC MAMMOGRAM WITH TOMOSYNTHESIS AND A FOCUSED BILATERAL BREAST ULTRASOUND CLINICAL INDICATION: 44-year-old patient presents for follow-up imaging recommended for follow-up imaging from study done in 2022. She is status post a benign stereotactic core biopsy calcifications in the left breast as well as a benign ultrasound-guided core biopsy of a mass in the right breast on 08/19/2023. She is also reporting a palpable area of concern in her right breast currently. She reports a family history of ovarian cancer in her mother. She has had an interval 14 pound weight loss. TECHNIQUE: Low dose full field digital breast tomosynthesis imaging was performed consisting of bilateral CC and MLO views. In addition, bilateral exaggerated lateral CC views were obtained. In addition, left CC and ML magnification views were performed. A focused bilateral breast ultrasound was performed. COMPARISON: 08/19/2023, 07/06/2023, 05/22/2023 FINDINGS: The breast tissue is extremely dense. This does lower the sensitivity of mammography. Right breast: The fibroglandular pattern of the right breast appears not significantly changed compared to the prior exams. There are stable nodular asymmetries in the mid superior, mid inferior and anterior lateral breast. A coil-shaped core biopsy marking clip olmos the ultrasound-guided core biopsy site in the upper outer quadrant. The triangular skin marker placed prior to imaging to indicate the palpable area of concern noted by the patient is in the region of the prior core biopsy. Focused ultrasound imaging of the right breast was performed for further evaluation. The patient was recommended to undergo follow-up of several benign-appearing masses in the right breast including the mass which was biopsied in the 9:30 position. There is a stable oval hypoechoic mass with circumscribed borders present in the 10 o'clock position, 5 cm from the nipple in the posterior one third of the breast measuring 0.5 cm in size. This is in the region where the patient reports the palpable area of concern. The mass which was biopsied in the 9:30 position is stable in appearance. It is an oval hypoechoic mass with circumscribed borders measuring up to 1.4 cm in size. There is a stable oval hypoechoic mass with circumscribed borders located in the 12:00 subareolar region in the anterior one third of the breast measuring up to 1 cm in size. Finally, there is a stable oval hypoechoic mass with circumscribed borders located in the 6 o'clock position in the middle one third of the breast measuring up to 1.1 cm in size. Left breast: The fibroglandular pattern is not significantly changed. There are stable areas of nodularity in the subareolar region as well as the central breast. A stoplight shaped core biopsy marking clip olmos the core biopsy site of calcifications in the upper outer quadrant. Magnification imaging reveals no significant change in the residual faint rounded and amorphous calcifications present. Follow-up focused ultrasound imaging of the left breast demonstrates no significant change in an oval hypoechoic mass with circumscribed borders located in the 12:00 periareolar region in the posterior one third of the breast measuring up to 1.2 cm in size. There is a stable oval hypoechoic mass with circumscribed borders located in the 6:00 subareolar region in the anterior one third of the breast measuring up to 1.0 cm in size. Nando Abernathy MD IMG MAMMOGRAPHY ORDERABL ES Final Result * (ABNORMAL) Hepatitis Panel, Acute (02/17/2023 2:27 PM EDT) Hep A IgM Negative Negative [facility] Hepatitis B Surface Ag Positive(A) Negative [facility] Comment:Positive HBsAg verif ied by algorithm coupled with screening index. Hep B Core IgM Indeterminat e(A) Negative [facility] Comment:Verified by repeat analysis Hepatitis C Ab Reactive(A) Non Reactive [facility] Blood 02/17/2023 2:27 PM EDT 02/17/2023 Narrative [facility] ([facility]) - 02/20/2023 4:11 PM EDT [facility]formed at: [facility] - [facility] [address] [place], [place] [id number] Technical Services Analyst: Zana Sanchez PhD, Phone: [phone] Patient Fasting: N us Larry Quezada MD LAB BLOOD ORDERABLES Final Resu lt [facility] ([facility]) [address] [place] [address], [facility] [address] [place] [address], from Last 3 Months or Most Recently Relevant to Health Maintenance Insurance [employer] Care Teams Store Loss Prevention Manager Relationship Specialty Start Date End Date Larry Quezada MD [address] [place] [address] [place] [address] PCP - General Family Medicine 01/21/22
--- OUTSIDE RECORDS SUMMARY | 2025-08-31 07:43 | XMS_ITS | Encounter Summary ---
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 Not on file Not on file documented as of this encounter Plan of Treatment Upcoming Encounters Date Type Department Care Team (Late st Contact Info) Description 01/29/2026 9:15 AM EDT Office Visit [facility] [address] [place] [address] Larry Quezada MD [address] [place] [address] documented as of this encounter Visit Diagnoses Not on filedocumented in this encounter Care Teams Laboratory Engineer Relationship Specialty Start Date End Date Larry Quezada MD [address] [place] [address] PCP - General Family Medicine 01/21/22 documented as of this encounter
--- NOTE | 2025-08-31 07:46 | US_ITS ---
FINAL REPORT TECHNIQUE: Multiple transverse and longitudinal scans were performed of the right upper quadrant of the abdomen. CLINICAL HISTORY: UNSPECIFIED VIRAL HEP B COMPARISON: None FINDINGS: HEPATIC ULTRASOUND There is fatty infiltration of the liver. No intrahepatic duct dilatation is identified. The common duct measures up to 8 mm. Doppler exam shows normal directional flow within patent hepatic and portal veins. There is a small amount of sludge in the gallbladder. No gallstones are seen. No evidence of perihepatic fluid is identified. IMPRESSION: Fatty liver. Reviewed, Interpreted and Dictated by Andrea Lux MD Transcribed by Kim Early Authenticated and [facility]
== END 2025-08-31 23:59 | disposition home or self-care (01) ==
LOC: RAD 07:41
PROVIDERS: PCP Family Medicine; Visit Provider Physician Assistant
DX: K76.0 Fatty (change of) liver, not elsewhere classified (principal); B19.10 Unspecified viral hepatitis B without hepatic coma
CPT/HCPCS: 76705